=== PATIENT | male | born 1965 | race Caucasian/White ===

== ENCOUNTER → 2018-01-02 16:56 | Outpatient (CLI) | payer OTHER, MEDICAID, SELFPAY ==
--- NOTE | 2018-01-02 16:58 | DI.RAD.S_ITS ---
PROCEDURE: XR CHEST 2V INDICATIONS: Wheezing, Recent pneumonia TECHNIQUE: 2 views of the chest were acquired. COMPARISON: [facility], , CHEST 1 VIEW, 09/10/2015, 9:43. FINDINGS: Surgical changes and devices: None. Lungs and pleura: No pleural effusions or pneumothorax. No acute consolidation. Low lung volumes and mild scattered atelectasis Mediastinum: Mediastinal contours are normal. Heart size is normal. Bones and chest wall: No suspicious bony abnormalities. Soft tissues appear unremarkable. IMPRESSION: No acute consolidation. Dictated by: Shivam Hickman M.D. on 01/02/2018 at 17:16 Approved by: Shivam Hickman M.D. on 01/02/2018 at 17:17
== END ==
PROVIDERS: Family Provider Family Medicine; PCP Family Medicine; Visit Provider Family Medicine
DX: R06.2 Wheezing (principal); Z87.01 Personal history of pneumonia (recurrent)
CPT/HCPCS: 71046

== ENCOUNTER → 2018-04-10 14:06 | Outpatient (CLI) | payer OTHER, MEDICAID, SELFPAY ==
[2018-04-10 14:54] LABS: Add Manual Diff / Slide Review NO; Basophils Absolute Auto 100 /uL (0-100); Basophils Percent Auto 1.2 % (0-2); Eosinophils Absolute Auto 700 /uL (0-450); Eosinophils Percent Auto 13.8 % (2-4); Hematocrit 29.6 % (41-53); Hemoglobin 8.7 g/dL (13.5-17.5); Lymphocytes Absolute Auto 1100 /uL (1100-4500); Lymphocytes Percent Auto 20.6 % (25-40); Mean Corpuscular HGB Conc 29.4 % (30-36); Monocytes Absolute Auto 400 /uL (0-900); Monocytes Percent Auto 7.1 % (3-14); Neutrophils Absolute Auto 3100 /uL (1500-7000); Neutrophils Percent Auto 57.3 % (50-75); Platelet Count 171 X10^3/uL (150-400); Red Blood Cell Count 4.35 X10^6/uL (4.5-5.9); Red Cell Distribution Width 19.6 % (11.6-14.8); White Blood Cell Count 5.4 X10^3/uL (4.5-11.0)
[2018-04-10 15:14] LABS: Hemoglobin A1C% w Est Avg Glu 5.7 % (4.0-6.0)
[2018-04-10 15:57] LABS: Alanine Aminotransferase 27 IU/L (21-72); Albumin Globulin Ratio 1.4 (1.0-2.8); Alkaline Phosphatase 51 U/L (38-126); Aspartate Aminotransferase 43 IU/L (17-59); Bilirubin Total 0.2 mg/dL (0.2-1.3); Blood Urea Nitrogen 12 mg/dL (9-20); Calcium 9.1 mg/dL (8.4-10.2); Carbon Dioxide 29 mmol/L (22-32); Chloride 104 mmol/L (98-107); Cholesterol 206 mg/dL (140-199); Estimated Glomerular Filt Rate > 60.0 mL/min (>60); Globulin 2.8 g/dL (1.7-4.1); Glucose 111 mg/dL (70-100); HDL Cholesterol 38 mg/dL (40-60); HEMOLYSIS < 15 (0-50); Hypochromasia 2+; LDL Cholesterol Calculated 147 mg/dL (<100); Microcytosis 2+; Ovalocytes 1+; Potassium 3.5 mmol/L (3.4-5.1); Sodium 141 mmol/L (137-145); Total Protein 6.8 g/dL (6.3-8.2); Triglycerides 107 mg/dL (35-150)
[2018-04-12 15:35] LABS: Parathyroid Hormone Int 42 pg/mL (14-64)
== END ==
PROVIDERS: PCP Family Medicine; Visit Provider Family Medicine
DX: D64.9 Anemia, unspecified (principal); E11.9 Type 2 diabetes mellitus without complications; E66.9 Obesity, unspecified; G40.909 Epilepsy, unspecified, not intractable, without status epilepticus; I10 Essential (primary) hypertension; J81.1 Chronic pulmonary edema; R53.83 Other fatigue
CPT/HCPCS: 36415; 80053; 80061; 83036; 83970; 85025

== ENCOUNTER → 2018-05-22 12:38 | Outpatient (CLI) | payer OTHER, MEDICAID, SELFPAY ==
[2018-05-22 12:59] LABS: Hematocrit 33.6 % (41-53); Hemoglobin 9.5 g/dL (13.5-17.5); Mean Corpuscular HGB Conc 28.4 % (30-36); Mean Corpuscular Hemoglobin 19.8 PG (26-34); Mean Corpuscular Volume 69.6 fL (80-100); Platelet Count 225 X10^3/uL (150-400); Red Blood Cell Count 4.82 X10^6/uL (4.5-5.9); Red Cell Distribution Width 22.6 % (11.6-14.8); White Blood Cell Count 6.4 X10^3/uL (4.5-11.0)
[2018-05-22 13:02] LABS: Add Manual Diff / Slide Review YES
[2018-05-22 14:04] LABS: Neutrophils Absolute Manual 2944 /uL (3000-5900); Nucleated Red Blood Cells 1 #/Diff; Total Cells Counted 100
[2018-05-22 14:12] LABS: Anisocytosis 2+; Microcytosis 1+; Poikilocytosis 1+; Polychromasia 1+
== END ==
PROVIDERS: PCP Family Medicine; Visit Provider Family Medicine
DX: D64.9 Anemia, unspecified (principal)
CPT/HCPCS: 36415; 85025

== ENCOUNTER → 2018-06-20 14:07 | Outpatient (CLI) | payer OTHER, MEDICAID, SELFPAY ==
[2018-06-20 14:26] LABS: Add Manual Diff / Slide Review NO; Basophils Absolute Auto 100 /uL (0-100); Basophils Percent Auto 1.2 % (0-2); Eosinophils Absolute Auto 600 /uL (0-450); Eosinophils Percent Auto 10.9 % (2-4); Hematocrit 37.1 % (41-53); Hemoglobin 11.2 g/dL (13.5-17.5); Lymphocytes Absolute Auto 1100 /uL (1100-4500); Lymphocytes Percent Auto 19.9 % (25-40); Mean Corpuscular HGB Conc 30.2 % (30-36); Mean Corpuscular Hemoglobin 23.5 PG (26-34); Mean Corpuscular Volume 77.6 fL (80-100); Monocytes Absolute Auto 300 /uL (0-900); Monocytes Percent Auto 6.1 % (3-14); Neutrophils Absolute Auto 3300 /uL (1500-7000); Neutrophils Percent Auto 61.9 % (50-75); Platelet Count 182 X10^3/uL (150-400); Red Blood Cell Count 4.78 X10^6/uL (4.5-5.9); Red Cell Distribution Width 29.6 % (11.6-14.8); White Blood Cell Count 5.3 X10^3/uL (4.5-11.0)
[2018-06-20 14:39] LABS: Anisocytosis 2+; Ovalocytes 1+
[2018-06-20 14:42] LABS: Alanine Aminotransferase 22 IU/L (21-72); Albumin 3.9 g/dL (3.5-5.0); Albumin Globulin Ratio 1.5 (1.0-2.8); Alkaline Phosphatase 59 U/L (38-126); Aspartate Aminotransferase 18 IU/L (17-59); Bilirubin Total 0.2 mg/dL (0.2-1.3); Blood Urea Nitrogen 12 mg/dL (9-20); Calcium 9.3 mg/dL (8.4-10.2); Carbon Dioxide 28 mmol/L (22-32); Chloride 104 mmol/L (98-107); Estimated Glomerular Filt Rate > 60.0 mL/min (>60); Globulin 2.6 g/dL (1.7-4.1); Glucose 92 mg/dL (70-100); HEMOLYSIS < 15 (0-50); Potassium 3.6 mmol/L (3.4-5.1); Sodium 141 mmol/L (137-145); Total Protein 6.5 g/dL (6.3-8.2)
[2018-06-20 14:45] LABS: HEMOLYSIS < 15 (0-50); Iron 44 ug/dL (49-181)
[2018-06-20 14:47] LABS: Hemoglobin A1C% w Est Avg Glu 4.8 % (4.0-6.0)
[2018-06-20 14:58] LABS: Percent Iron Saturation 14 % (20-50); Total Iron Binding Capacity 318 ug/dL (261-462); Transferrin 262 mg/dL (206-381)
== END ==
PROVIDERS: PCP Family Medicine; Visit Provider Family Medicine
DX: D64.9 Anemia, unspecified (principal); E11.9 Type 2 diabetes mellitus without complications; E66.9 Obesity, unspecified; G40.909 Epilepsy, unspecified, not intractable, without status epilepticus
CPT/HCPCS: 36415; 80053; 83036; 83540; 83550; 85025

== ENCOUNTER → 2018-09-25 14:14 | Outpatient (CLI) | payer OTHER, MEDICAID, SELFPAY ==
[2018-09-25 14:47] LABS: Hematocrit 38.9 % (41-53); Hemoglobin 12.7 g/dL (13.5-17.5); Mean Corpuscular HGB Conc 32.6 % (30-36); Mean Corpuscular Hemoglobin 28.4 PG (26-34); Mean Corpuscular Volume 87.2 fL (80-100); Platelet Count 206 X10^3/uL (150-400); Red Blood Cell Count 4.46 X10^6/uL (4.5-5.9); Red Cell Distribution Width 17.8 % (11.6-14.8); White Blood Cell Count 5.2 X10^3/uL (4.5-11.0)
[2018-09-25 15:05] LABS: Alanine Aminotransferase 19 IU/L (21-72); Albumin 4.4 g/dL (3.5-5.0); Albumin Globulin Ratio 1.7 (1.0-2.8); Alkaline Phosphatase 56 U/L (38-126); Aspartate Aminotransferase 19 IU/L (17-59); BUN Creatinine Ratio 27.5 (6-22); Bilirubin Total 0.5 mg/dL (0.2-1.3); Blood Urea Nitrogen 11 mg/dL (9-20); Carbon Dioxide 21 mmol/L (22-32); Chloride 108 mmol/L (98-107); Cholesterol 136 mg/dL (140-199); Estimated Glomerular Filt Rate > 60.0 mL/min (>60); Globulin 2.6 g/dL (1.7-4.1); Glucose 129 mg/dL (70-100); HDL Cholesterol 43 mg/dL (40-60); HEMOLYSIS < 15 (0-50); LDL Cholesterol Calculated 79 mg/dL (<100); Potassium 4.1 mmol/L (3.4-5.1); Sodium 140 mmol/L (137-145); Triglycerides 69 mg/dL (35-150)
[2018-09-25 15:28] LABS: Neutrophils Absolute Manual 3900 /uL (3000-5900); Total Cells Counted 100
[2018-09-25 15:30] LABS: Anisocytosis 1+
[2018-09-25 16:11] LABS: Hemoglobin A1C% w Est Avg Glu 4.8 % (4.0-6.0)
== END ==
PROVIDERS: PCP Family Medicine; Visit Provider Family Medicine
DX: E11.9 Type 2 diabetes mellitus without complications (principal); Z51.81 Encounter for therapeutic drug level monitoring; Z86.2 Personal history of diseases of the blood and blood-forming organs and certain disorders involving the immune mechanism
CPT/HCPCS: 36415; 80053; 80061; 83036; 85025

== ENCOUNTER → 2019-11-01 09:34 | Outpatient (CLI) | payer OTHER, MEDICAID, SELFPAY ==
[2019-11-01 10:20] LABS: Add Manual Diff / Slide Review NO; Basophils Absolute Auto 0 /uL (0-100); Basophils Percent Auto 0.9 % (0-2); Eosinophils Absolute Auto 400 /uL (0-450); Eosinophils Percent Auto 7.4 % (2-4); Hematocrit 31.5 % (41-53); Hemoglobin 9.8 g/dL (13.5-17.5); Lymphocytes Absolute Auto 1400 /uL (1100-4500); Lymphocytes Percent Auto 26.8 % (25-40); Mean Corpuscular Hemoglobin 24.7 PG (26-34); Mean Corpuscular Volume 79.6 fL (80-100); Monocytes Absolute Auto 400 /uL (0-900); Monocytes Percent Auto 7.7 % (3-14); Neutrophils Absolute Auto 3000 /uL (1500-7000); Neutrophils Percent Auto 57.2 % (50-75); Platelet Count 197 X10^3/uL (150-400); Red Blood Cell Count 3.96 X10^6/uL (4.5-5.9); Red Cell Distribution Width 16.6 % (11.6-14.8); White Blood Cell Count 5.3 X10^3/uL (4.5-11.0)
[2019-11-01 10:32] LABS: Alanine Aminotransferase 17 IU/L (<50); Albumin 3.6 g/dL (3.5-5.0); Albumin Globulin Ratio 1.3 (1.0-2.8); Alkaline Phosphatase 59 U/L (38-126); Aspartate Aminotransferase 18 IU/L (17-59); BUN Creatinine Ratio 23.3 (6-22); Bilirubin Total 0.2 mg/dL (0.2-1.3); Blood Urea Nitrogen 17 mg/dL (9-20); Calcium 8.8 mg/dL (8.4-10.2); Carbon Dioxide 23 mmol/L (22-32); Chloride 109 mmol/L (98-107); Cholesterol 179 mg/dL (140-199); Estimated Glomerular Filt Rate > 60.0 mL/min (>60); Globulin 2.7 g/dL (1.7-4.1); Glucose 132 mg/dL (70-100); HDL Cholesterol 33 mg/dL (40-60); HEMOLYSIS < 15 (0-50); LDL Cholesterol Calculated 110 mg/dL (<100); Potassium 3.7 mmol/L (3.4-5.1); Sodium 140 mmol/L (137-145); Total Protein 6.3 g/dL (6.3-8.2); Triglycerides 181 mg/dL (35-150)
[2019-11-01 10:35] LABS: Hemoglobin A1C% w Est Avg Glu 6.1 % (4.0-6.0)
== END ==
PROVIDERS: PCP Family Medicine; Referring Provider Family Medicine; Visit Provider Family Medicine
DX: E11.9 Type 2 diabetes mellitus without complications (principal)
CPT/HCPCS: 36415; 80053; 80061; 83036; 85025

== ENCOUNTER → 2021-09-02 15:21 | Outpatient (CLI) | payer OTHER, MEDICAID, SELFPAY ==
[2021-09-02 16:13] LABS: Add Manual Diff / Slide Review NO; Basophils Absolute Auto 0 /uL (0-100); Basophils Percent Auto 1.3 % (0-2); Eosinophils Absolute Auto 200 /uL (0-450); Eosinophils Percent Auto 4.8 % (2-4); Lymphocytes Absolute Auto 800 /uL (1100-4500); Lymphocytes Percent Auto 21.5 % (25-40); Mean Corpuscular HGB Conc 28.1 % (30-36); Mean Corpuscular Hemoglobin 17.6 PG (26-34); Mean Corpuscular Volume 62.7 fL (80-100); Monocytes Absolute Auto 300 /uL (0-900); Monocytes Percent Auto 8.5 % (3-14); Neutrophils Absolute Auto 2400 /uL (1500-7000); Neutrophils Percent Auto 63.9 % (50-75); Platelet Count 143 X10^3/uL (150-400); Red Blood Cell Count 3.19 X10^6/uL (4.5-5.9); White Blood Cell Count 3.7 X10^3/uL (4.5-11.0)
[2021-09-02 16:17] LABS: Hemoglobin 5.6 g/dL (13.5-17.5)
[2021-09-02 16:20] LABS: Alanine Aminotransferase 8 IU/L (<50); Albumin Globulin Ratio 1.5 (1.0-2.8); Alkaline Phosphatase 49 U/L (38-126); Aspartate Aminotransferase 21 IU/L (17-59); BUN Creatinine Ratio 14.3 (6-22); Bilirubin Total 0.2 mg/dL (0.2-1.3); Blood Urea Nitrogen 11 mg/dL (9-20); Calcium 8.8 mg/dL (8.4-10.2); Carbon Dioxide 22 mmol/L (22-32); Chloride 111 mmol/L (98-107); Cholesterol 111 mg/dL (140-199); Estimated Glomerular Filt Rate > 60 mL/min (>60); Globulin 2.6 g/dL (1.7-4.1); Glucose 120 mg/dL (70-100); HDL Cholesterol 24 mg/dL (40-60); HEMOLYSIS < 15 (0-50); LDL Cholesterol Calculated 70 mg/dL (<100); Potassium 3.8 mmol/L (3.4-5.1); Sodium 141 mmol/L (137-145); Total Protein 6.6 g/dL (6.3-8.2); Triglycerides 86 mg/dL (35-150)
[2021-09-02 17:09] LABS: Vitamin B12 532 pg/mL (239-931)
[2021-09-02 17:42] LABS: Hypochromasia 3+; Microcytosis 3+
== END ==
PROVIDERS: PCP Family Medicine; Referring Provider Family Medicine; Visit Provider Family Medicine
DX: E11.9 Type 2 diabetes mellitus without complications (principal); E78.5 Hyperlipidemia, unspecified; I10 Essential (primary) hypertension
CPT/HCPCS: 36415; 80053; 80061; 82607; 85025

== ENCOUNTER → 2022-02-23 13:40 | Outpatient (CLI) | payer OTHER, MEDICAID, SELFPAY | PROVIDERS: PCP Family Medicine; Visit Provider Family Medicine | DX: R30.0 Dysuria (principal); R10.9 Unspecified abdominal pain | CPT/HCPCS: 81002 ==

== ENCOUNTER 2022-04-29 13:22 | Day surgery (SDC) | payer OTHER, MEDICAID, SELFPAY ==
--- NOTE | 2022-04-29 | PATH_ITS ---
[facility] Accession Number: [id number] No. of containers..01 Tissue . 01 Material submitted: . colon - DESCENDING COLON POLYP . 01 Diagnosis: Descending Colon, Polyp, Biopsy: Tubular adenoma. Additional levels were examined. MRV 05/06/2022 1406 Local . 01 Electronically signed: . Aicha Shirley MD, Pathologist NPI- [id number] . 01 Gross description: . DESCENDING COLON POLYP: Received in formalin is 1 fragment(s) of woodard, soft tissue measuring 0.4 x 0.2 x 0.1 cm submitted entirely in 1 cassette(s) /CPE 05/01/2022 0814 Local . 01 Pathologist provided ICD-10: D12.4 . 01 CPT . 820435 Specimen Comment: A courtesy copy of this report has been sent to [phone] Performed at: 01 [facility] [address] [place] [address], [place], [place] [id number] MD Everette Card MD Phone: [phone]
[2022-04-29] MEDS: LACTATED RINGERS 1,000 ML 120 ML IV (13:32)
[2022-04-29 13:39] VITALS: BP 127/77; PULSE 55; RESP 16; TEMP 36.1; O2SAT 100; BMI 36.8
--- NOTE | 2022-04-29 14:20 | PM.HP.1 ---
History of Present Illness History of Present Illness Date Patient Seen: 04/29/22 Time Patient Seen: 14:20 Chief complaint: SDC Narrative: Lindsey is here for his colonoscopy rubber-band ligation. Please see the office note from March for details Patient History Medical History (Updated 04/15/22 @ 11:11 by Keith Oliva DO) Anemia (~2013) BRBPR (bright red blood per rectum) Depression (Unknown) Developmental delay, mild (Unknown) Diabetes (Unknown) Excessive weight gain Flank pain GERD (gastroesophageal reflux disease) (Unknown) History of nephrolithiasis Hyperlipemia (Unknown) Hypertension (Unknown) Internal bleeding hemorrhoids Iron deficiency anemia due to chronic blood loss Migraines (Unknown) Nocturia Obstructive sleep apnea (Unknown) Peripheral neuropathy (Unknown) Rectal bleeding Right ureteral calculus Seizures (Unknown) Skin sensation disturbance Surgical History (Updated 09/15/21 @ 15:31 by Jeremy More MD) History of carpal tunnel release (~2003) History of esophagogastroduodenoscopy (EGD) (08/2015) Hx of colonoscopy (09/2015) Family & Social History Family History Brother DM2 (diabetes mellitus, type 2) Mother CA (myocardial infarction) Social History: household members family Tobacco & Substance use: Smoking Status Never smoker alcohol intake never Substance Use Type does not use Meds Home Medications and Allergies Home Medications Medication Instructions Recorded Confirmed Type fluticasone propionate 50 1 spray intranasal DAILY ##16 10/20/16 04/29/22 Rx mcg/actuation nasal spray,suspension Lactulose See Rx Instructions .Route .COMPLEX 09/21/17 04/29/22 History albuterol sulfate 90 mcg/actuation 2 puff inhalation Q6H PRN 01/02/18 04/29/22 Rx aerosol inhaler shortness of breath or wheezing #18 grams acetaminophen 325 mg tablet (Pain See Rx Instructions .Route 07/02/19 04/29/22 Rx Reliever (acetaminophen)) .COMPLEX #60 tabs ascorbic acid (vitamin C) 1,000 mg 1 g PO DAILY #90 tabs 10/15/20 04/29/22 Rx tablet blood sugar test strips #100 ea 10/15/20 04/15/22 Rx primidone 50 mg tablet See Rx Instructions .Route 09/15/21 04/29/22 Rx .COMPLEX #270 tabs topiramate 100 mg tablet See Rx Instructions .Route 09/15/21 04/29/22 Rx .COMPLEX #90 tabs simvastatin 40 mg tablet See Rx Instructions .Route 10/13/21 04/29/22 Rx .COMPLEX #90 tabs pantoprazole 40 mg tablet,delayed 40 mg PO DAILY #90 tabs 01/27/22 04/29/22 Rx release gtxvyydpcb-bhsxzfxwarqfa-eykrocug See Rx Instructions .Route 01/28/22 04/29/22 Rx 50 mg-325 mg-40 mg tablet .COMPLEX #60 tabs fluoxetine 20 mg capsule See Rx Instructions .Route 02/22/22 04/29/22 Rx .COMPLEX #90 caps metformin 500 mg tablet See Rx Instructions .Route 02/22/22 04/29/22 Rx .COMPLEX #180 tabs psyllium seed (sugar) oral powder 2 tsp PO ONCE #1,254 grams 02/23/22 04/29/22 Rx (Metamucil (sugar) oral powder) hydrocodone 5 mg-acetaminophen 325 1 tab PO Q4-6H PRN pain #180 tabs 03/11/22 04/29/22 Rx mg tablet tamsulosin 0.4 mg capsule 0.4 mg PO DAILY #14 caps 04/15/22 04/29/22 Rx propranolol 40 mg tablet See Rx Instructions .Route 04/21/22 04/29/22 Rx .COMPLEX #90 tabs Allergies Allergy/AdvReac Type Severity Reaction Status Date / Time ketorolac [KETOROLAC] Allergy Severe Hallucinati Verified 04/15/22 10:54 ons phenytoin [PHENYTOIN] Allergy Severe Anaphylaxis Verified 04/15/22 10:54 codeine [CODEINE] Allergy Mild Nausea Verified 04/15/22 10:54 Penicillins [PENICILLINS] Allergy Unknown Patient Verified 04/15/22 10:54 can't remember Exam Vital Signs (past 8 hours): - 04/29/22 13:39 Temperature 97 F L Pulse Rate 55 L Respiratory Rate 16 Blood Pressure 127/77 Pulse Oximetry 100 Oxygen Delivery Method Room Air Oxygen Delivery Method Room Air Const General: No acute distress Assessment & Plan Assessment and plan (1) Internal bleeding hemorrhoids: Status: Acute Plan We will proceed with colonoscopy and rubber-band ligation Time Spent With Patient Critical Care time: I spent a total of [] minutes of critical care time on this patient's care today; this time is exclusive of procedural time.
--- NOTE | 2022-04-29 14:55 | P.OP.COLON_ITS ---
Operative Date/Time/Diagnoses Date of procedure: 04/29/22 Time of procedure: 14:55 Pre-op diagnosis: Anemia Post-op diagnosis: same Procedure & Clinicians Study performed: Colonoscopy and rubber-band ligation of internal hemorrhoids Same procedure as scheduled: Yes Surgeon: David Edwards Procedure Notes Procedure in detail: Surgeon: David Edwards MD Anesthesia: Sharron Tabor PRINTER TECHNICIAN Procedure: The patient was brought to the endoscopy suite, placed in left lateral decubitus position. The patient was connected to monitoring devices. A time-out was performed. Sedation was administered. Once the patient was adequately sedated, a digital rectal exam was performed and was normal. The scope was then inserted and advanced to the cecum where the appendiceal orifice was identified and photographed. The scope was then slowly withdrawn over greater than 6 minutes. The mucosa was thoroughly inspected. There was a 5 mm polyp in the descending colon removed with the Jumbo forceps. The scope was retroflexed in the rectum. There were internal hemorrhoids. The scope was straightened and removed. Rubber-band ligation was performed to the hemorrhoidal columns in the left lateral, right anterior and right posterior location The patient was awakened and brought to recovery. Scope withdrawal time: 10 minutes Sedation time: 17 minutes EBL: 2 mL Findings: 5 mm polyp in the descending colon and internal hemorrhoids Post-procedure Disposition: PACU
[2022-04-29 14:56] VITALS: BP 101/61; PULSE 68; RESP 24; TEMP 36.4; O2SAT 98
[2022-04-29 15:02] VITALS: BP 105/69; PULSE 62; RESP 16; O2SAT 99
[2022-04-29 15:10] VITALS: BP 105/69; PULSE 62; RESP 22; O2SAT 99
== END 2022-04-29 15:19 | disposition home or self-care (01) ==
PROVIDERS: PCP Family Medicine; Referring Provider Surgery; Visit Provider Surgery
PROC: 0DJD8ZZ Inspection of Lower Intestinal Tract, Via Natural or Artificial Opening Endoscopic (ICD-10-PCS; CPT 45378; principal; 2022-04-29 14:30)
DX: D64.9 Anemia, unspecified (principal); K64.8 Other hemorrhoids; D12.4 Benign neoplasm of descending colon
CPT/HCPCS: 45380; 46221; J2704

== ENCOUNTER → 2022-06-24 10:06 | Oncology outpatient (ONC) | payer OTHER, MEDICAID, SELFPAY ==
[2021-09-15 15:10] VITALS: BP 121/63; PULSE 65; RESP 18; TEMP 36.3; O2SAT 99
--- NOTE | 2021-09-15 15:28 | ONC.CONS ---
History of Present Illness - Data of Consult Primary Care Provider: Augie Oliva, DO - Consult Narrative Reason for consult: Anemia Narrative: Lindsey Arrieta is a 56 year old male with history of anemia and bright red blood per rectum recently found to have hematocrit of 20% and is now being referred for further evaluation. He also has a history of type 2 diabetes developmental delay and depression. He states he has noted bright red blood per rectum over the last year however does not recall recent colonoscopy. Was placed on oral iron tablets and has been taking these for the last 4-6 weeks. He also describes fatigue and [id number] shortness of breath with exertion. Prior records indicate he had a colonoscopy in September of 2015 and EGD in August of 2015. He denies any weight loss loss of appetite headaches vision changes cough shortness of breath. CC: Jeremy More MD Home Medications and Allergies Home Medications Medication Instructions Recorded Confirmed Type fluticasone propionate 50 1 spray intranasal DAILY ##16 10/20/16 09/02/21 Rx mcg/actuation nasal spray,suspension Lactulose See Rx Instructions .Route .COMPLEX 09/21/17 09/02/21 History albuterol sulfate 90 mcg/actuation 2 puff inhalation Q6H PRN 01/02/18 09/02/21 Rx aerosol inhaler shortness of breath or wheezing #18 grams acetaminophen 325 mg tablet (Pain See Rx Instructions .Route 07/02/19 09/02/21 Rx Reliever (acetaminophen)) .COMPLEX #60 tabs ascorbic acid (vitamin C) 1,000 mg 1 g PO DAILY #90 tabs 10/15/20 09/02/21 Rx tablet blood sugar test strips #100 ea 10/15/20 09/02/21 Rx ferrous sulfate 325 mg (65 mg 325 mg PO DAILY #90 tabs 10/15/20 09/02/21 Rx iron) tablet fluoxetine 20 mg capsule See Rx Instructions .Route 05/25/21 09/02/21 Rx .COMPLEX #30 caps propranolol 40 mg tablet See Rx Instructions .Route 05/25/21 09/02/21 Rx .COMPLEX #90 tabs simvastatin 40 mg tablet See Rx Instructions .Route 06/22/21 09/02/21 Rx .COMPLEX #90 tabs pantoprazole 40 mg tablet,delayed 40 mg PO DAILY #90 tabs 07/27/21 09/02/21 Rx release [id number]-hzhvcmaj See Rx Instructions .Route 08/05/21 09/02/21 Rx 50 mg-325 mg-40 mg tablet .COMPLEX #60 tabs metformin 500 mg tablet See Rx Instructions .Route 08/18/21 09/02/21 Rx .COMPLEX #180 tabs primidone 50 mg tablet See Rx Instructions .Route 09/15/21 Rx .COMPLEX #270 tabs topiramate 100 mg tablet See Rx Instructions .Route 09/15/21 Rx .COMPLEX #90 tabs Allergies Allergy/AdvReac Type Severity Reaction Status Date / Time ketorolac [KETOROLAC] Allergy Severe Hallucinati Verified 09/02/21 15:09 ons phenytoin [PHENYTOIN] Allergy Severe Anaphylaxis Verified 09/02/21 15:09 codeine [CODEINE] Allergy Mild Nausea Verified 09/02/21 15:09 Penicillins [PENICILLINS] Allergy Unknown Patient Verified 09/02/21 15:09 can't remember Medical History - Medical, Surgical, Family History Medical History: Medical History (Last Updated 09/02/21 @ 15:24 by Augie Oliva DO) Anemia Onset Date: ~2013 BRBPR (bright red blood per rectum) Depression Onset Date: Unknown Developmental delay, mild Onset Date: Unknown Diabetes Onset Date: Unknown Excessive weight gain GERD (gastroesophageal reflux disease) Onset Date: Unknown Hyperlipemia Onset Date: Unknown Hypertension Onset Date: Unknown Iron deficiency anemia due to chronic blood loss Migraines Onset Date: Unknown Nocturia Obstructive sleep apnea Onset Date: Unknown Peripheral neuropathy Onset Date: Unknown Rectal bleeding Seizures Onset Date: Unknown Skin sensation disturbance Surgical History: Surgical History (Last Reviewed 03/25/20 @ 15:33 by Augie Oliva DO) History of carpal tunnel release Onset Date: ~2003 History of esophagogastroduodenoscopy (EGD) Onset Date: 08/2015 Hx of colonoscopy Onset Date: 09/2015 Family History: Family History (Last Reviewed 08/05/17 @ 17:07 by Magdalene Edmondson DO) Brother DM2 (diabetes mellitus, type 2) Mother CT (myocardial infarction) - Social History Smoking Status: Never smoker Review of Systems - Patient Self-Reported Symptoms SR Constitution: Fatigue/Malaise SR respiratory issues: Shortness of breath SR Cardiovascular issues: Chest pain, discomfort, tightness, Shortness of breath with activity or lying flat SR Gastrointestinal issues: Nausea, Blood in stool SR Neuro issues: Headache Constitutional: other (negative for unexpected weight change), no fever(s) Ears, nose, mouth, throat: no sore throat, no lump, no mass, no mouth sores Cardiovascular: no chest pain, no edema Respiratory: no shortness of breath, no cough Gastrointestinal: other (negative for blood in stool), no abdominal pain, no diarrhea Genitourinary: no dysuria, no hematuria Musculoskeletal: no abnormal gait, no back pain, no myalgias Integumentary: no rash, no itching Neurological: no abnormal gait, no dizziness, no headache(s) Hematologic/Lymphatic: no adenopathy Psychiatric: other (negative for decreased concentration), no anxiety Exam Vital signs: Vital Signs Temp Pulse Resp BP Pulse Ox 09/15/21 15:10 97.3 F L 65 18 121/63 99 Intake and Output 09/14/21 09/15/21 09/15/21 23:59 07:59 15:59 Other: Weight 110 kg Patient Weight 09/15/21 23:59 Weight 110 kg - Constitutional positive no acute distress, negative diaphoretic - Routine HEENT Exam Head: Present: normocephalic Eye: Present: PERRL (Conjunctivae normal) ENT: Present: mucous membranes moist - Routine Respiratory Exam Present: Clear to auscultation bilaterally. Absent: rales, respiratory distress, wheezes - Routine Cardiovascular Exam Present: RRR. Absent: murmur, irregular rhythm - Routine Abdominal Exam Present: soft. Absent: tenderness, distended, guarding - Routine Extremities Exam Present: full ROM. Absent: edema, tenderness (No Swelling) - Routine Skin Exam Present: dry, warm. Absent: lesions (No Bruising), jaundice - Routine Neurological Exam Present: alert, oriented X3. Absent: sensory deficit, motor deficit - Routine Psychiatric Exam Present: normal affect, normal thought process, cooperative. Absent: anxious, agitated Results - Imaging Additional studies: Procedures Excision of Esophagus, Via Natural or Artificial Opening Endoscopic, Diagnostic (09/11/15) Excision of Stomach, Via Natural or Artificial Opening Endoscopic, Diagnostic (09/11/15) Inspection of Lower Intestinal Tract, Via Natural or Artificial Opening Endoscopic (09/11/15) Transfusion of Nonautologous Frozen Plasma into Peripheral Vein, Percutaneous Approach (09/11/15) Transfusion of Nonautologous Red Blood Cells into Peripheral Vein, Percutaneous Approach (09/11/15) Assessment and Plan (1) Iron deficiency anemia due to chronic blood loss Status: Acute This is a very pleasant 56-year-old gentleman referred for evaluation of microcytic anemia with recent hematocrit of 20%. He does have a history of bright red blood per rectum and previous colonoscopies in 2016. He is on oral iron but however has not responded well to these. Given his rather low hematocrit I recommend starting iron sulfate intravenously weekly x5 doses to help improve his hematocrit. I will plan on starting him tomorrow given his severe anemia. I will also refer him to Gastroenterology for possible repeat colonoscopy given the bright red blood per rectum that he describes recently. The patient is agreeable to this plan will return to clinic tomorrow for 1st 1st iron infusion and will arrange for referral to Gastroenterology in the coming weeks.
--- NOTE | 2021-09-15 15:56 | PC.NURSE ---
THIS NURSE WAS INFORMED BY RAIZA THAT PATIENT WILL NOT BE ABLE TO GET IRON TOMORROW BOTH BECAUSE IT STILL NEEDS PREAUTH AND PATIENT CANNOT GET A RIDE UNTIL NEXT WEEK. DUE TO LOW H/H THIS NURSE CHECKED WITH DR CARSON WHETHER PATIENT HAD BEEN INSTRUCTED TO GO TO THE ER IF HIS SYMPTOMS OF SOB ARE WORSENING. DR CARSON RESPONDED THAT HE DID GIVE THIS INSTRUCTION TO THE PATIENT.
[2021-09-15 16:18] LABS: Add Manual Diff / Slide Review NO; Basophils Absolute Auto 100 /uL (0-100); Basophils Percent Auto 1.4 % (0-2); Eosinophils Absolute Auto 200 /uL (0-450); Eosinophils Percent Auto 4.2 % (2-4); Lymphocytes Absolute Auto 700 /uL (1100-4500); Lymphocytes Percent Auto 14.9 % (25-40); Mean Corpuscular Hemoglobin 17.6 PG (26-34); Mean Corpuscular Volume 64.9 fL (80-100); Monocytes Absolute Auto 600 /uL (0-900); Monocytes Percent Auto 12.6 % (3-14); Neutrophils Absolute Auto 3100 /uL (1500-7000); Neutrophils Percent Auto 66.9 % (50-75); Platelet Count 310 X10^3/uL (150-400); Red Blood Cell Count 3.16 X10^6/uL (4.5-5.9); Red Cell Distribution Width 22.7 % (11.6-14.8); White Blood Cell Count 4.6 X10^3/uL (4.5-11.0)
[2021-09-15 16:20] LABS: Hematocrit 20.5 % (41-53); Hemoglobin 5.5 g/dL (13.5-17.5)
[2021-09-15 16:32] LABS: Alanine Aminotransferase 14 IU/L (<50); Albumin 4.1 g/dL (3.5-5.0); Albumin Globulin Ratio 1.5 (1.0-2.8); Alkaline Phosphatase 53 U/L (38-126); Aspartate Aminotransferase 25 IU/L (17-59); BUN Creatinine Ratio 11.5 (6-22); Bilirubin Total 0.3 mg/dL (0.2-1.3); Blood Urea Nitrogen 7 mg/dL (9-20); Calcium 8.9 mg/dL (8.4-10.2); Carbon Dioxide 25 mmol/L (22-32); Chloride 110 mmol/L (98-107); Estimated Glomerular Filt Rate > 60 mL/min (>60); Globulin 2.7 g/dL (1.7-4.1); Glucose 133 mg/dL (70-100); HEMOLYSIS < 15 (0-50); Potassium 3.6 mmol/L (3.4-5.1); Sodium 144 mmol/L (137-145); Total Protein 6.8 g/dL (6.3-8.2)
[2021-09-15 16:35] LABS: HEMOLYSIS < 15 (0-50); Iron 27 ug/dL (49-181)
[2021-09-15 16:45] LABS: Hypochromasia 3+; Microcytosis 2+
[2021-09-15 16:46] LABS: Percent Iron Saturation 6 % (20-50); Total Iron Binding Capacity 470 ug/dL (261-462); Transferrin 353 mg/dL (206-381)
[2021-09-15 17:07] LABS: Ferritin 4 ng/mL (18-464)
[2021-09-23 10:59] VITALS: BP 98/63; PULSE 63; RESP 16; TEMP 36.3; O2SAT 100
--- NOTE | 2021-09-23 11:01 | ONC.SCHED ---
GI Referral: Jada sent referral information on 09/15/21 regarding urgent referral to [facility] for [facility] bleeding and anemia. [facility] will contact patient for scheduling.
[2021-09-23 11:08] LABS: Hematocrit 19.1 % (41-53); Hemoglobin 5.3 g/dL (13.5-17.5)
[2021-09-23] MEDS: IRON SUCROSE 300 MG in SODIUM CHLORIDE 0.9% 250 ML 176.667 MG IV (11:42)
--- NOTE | 2021-09-23 12:28 | PC.NURSE ---
Addendum entered by Luz James R.N. 09/23/21 15:17: Unable to find GI provider closer to pt's residence that is able to get the pt in prior to November. This RN provided update to DAVE Neal at [facility] and Val placed on their schedule for next Tue at 1130. This RN provided Val with pt's brother, Conrad's phone number. Val agrees to call Conrad with appt info. This RN let Conrad know he should be expecting a call from [facility], Conrad verbalized understanding. Original Note: pt update: Pt reports SOB with activity, dizziness and fatigue. Pt continues to reports blood in stool, MD aware. Critical h/h results given to Dr. More, one unit blood ordered. Iron infusing at this time, no issues noted. This RN inquired with pt about GI referral placed by Dr. More last week during appt. Per pt he is unaware of referral or appt. Clinical ship ceiler, Jada, informed this consumer loan underwriter that pt has a phone visit appt scheduled for this afternoon at 2:20 with [facility]. Pt informed this RN that he does not own a phone, and was unaware of appt. This RN spoke with DAVE Neal at [facility] and updated her on pt's phone status and updated blood orders, Val verbalized understanding. This RN also explained to Val that pt's brother and mode of transportation is requesting new referral to be placed for a GI in the [facility] area, closer to where the pt and family live. If unable to find a GI closer to their residence, pt's brother Conrad agreeable to take pt to [facility]. Plan to provide Val with update if unable to find a GI in pt's area, Val agreeable.
[2021-09-23 13:43] VITALS: BP 101/41; PULSE 62; RESP 18; TEMP 36.7
[2021-09-23 13:58] VITALS: BP 107/56; PULSE 64; RESP 16; TEMP 36.4
[2021-09-23 16:22] VITALS: BP 101/52; PULSE 64; RESP 16; TEMP 36.6
[2021-09-30] MEDS: IRON SUCROSE 300 MG in SODIUM CHLORIDE 0.9% 250 ML 176.667 MG IV (14:12)
[2021-09-30 14:17] VITALS: BP 97/52; PULSE 57; RESP 16; TEMP 36.6; O2SAT 98
[2021-10-07 10:40] VITALS: BP 101/62; PULSE 55; RESP 16; TEMP 36.4; O2SAT 100
[2021-10-07] MEDS: IRON SUCROSE 300 MG in SODIUM CHLORIDE 0.9% 250 ML 176.667 MG IV (10:43)
[2021-10-21 11:07] VITALS: BP 99/39; PULSE 65; RESP 18; O2SAT 98
[2021-10-21] MEDS: IRON SUCROSE 300 MG in SODIUM CHLORIDE 0.9% 250 ML 176.667 MG IV (11:11)
[2021-10-21 14:04] VITALS: BP 102/62
--- NOTE | 2021-10-21 16:09 | PC.NURSE ---
CBC AT [facility] ARRANGED FOR PATIENT HE STATES HE HAS INCREASING SOB ON EXERTION THE LAST FEW DAYS, HAD SOME RECTAL BLEEDING ON THE WEEKEND FOR WHICH HE HAD TO CHANGE HIS UNDERWEAR (POST COLONOSCOPY ON TUESDAY) AND BLOOD PRESSURES WERE QUITE LOW TODAY WHILE PATIENT HERE FOR IRON INFUSION (ALTHOUGH WITHIN HIS RANGE OVER THE LAST MONTH AND HE IS NOT EXPERIENCING DIZZINESS). THIS NURSE INFORMED NURSE QUINTANILLA AT PCP DR CASTRO OF THE LOW BLOOD PRESSURES AND FAXED LAB ORDER TO [facility] IN [place].
--- NOTE | 2021-10-21 16:31 | PC.NURSE ---
MESSAGE LEFT FOR FAMILY CONTACT RAMILA TO CALL BACK AND SPEAK WITH TRIAGE ABOUT [facility] TO GET CBC DRAWN AT [facility], [facility] ON SUNDAY 10/22. THIS NURSE WROTE ON FAXED ORDER TO [facility] THE REQUEST FOR A CALL IN OF THE RESULTS WELL FAX TO OUR NUMBERS.
--- NOTE | 2021-10-22 15:43 | PC.NURSE ---
THIS NURSE REACHED PATIENT TODAY AND TOLD HIM TO GET LABS DONE TODAY OR TOMORROW ON THE ORDER WHICH HAS BEEN SENT TO [facility]. PATIENT VOICED AGREEMENT.
[2021-10-28 10:17] VITALS: BP 91/52; PULSE 60; RESP 16; TEMP 36.3; O2SAT 98
[2021-10-28] MEDS: IRON SUCROSE 300 MG in SODIUM CHLORIDE 0.9% 250 ML 176.667 MG IV (11:13)
[2021-11-24 16:17] VITALS: BP 111/69; PULSE 63; RESP 18; TEMP 36.3; O2SAT 97
--- NOTE | 2021-11-24 16:19 | ONC.PN ---
PN -Subjective - Date of Visit Date of visit: 11/24/21 Chief Complaint: f/u iron def anemia Interval history: Lindsey returns today after undergoing iron infusions and EGD + colonoscopy. Overall he feels better. - Patient Self-Reported Symptoms SR Constitution: Fatigue/Malaise SR respiratory issues: Shortness of breath SR Cardiovascular issues: Shortness of breath with activity or lying flat SR Gastrointestinal issues: Blood in stool SR Musculoskeletal issues: Muscle weakness SR Neuro issues: Headache Home Medications and Allergies Home Medications Medication Instructions Recorded Confirmed Type fluticasone propionate 50 1 spray intranasal DAILY ##16 10/20/16 09/02/21 Rx mcg/actuation nasal spray,suspension Lactulose See Rx Instructions .Route .COMPLEX 09/21/17 09/02/21 History albuterol sulfate 90 mcg/actuation 2 puff inhalation Q6H PRN 01/02/18 09/02/21 Rx aerosol inhaler shortness of breath or wheezing #18 grams acetaminophen 325 mg tablet (Pain See Rx Instructions .Route 07/02/19 09/02/21 Rx Reliever (acetaminophen)) .COMPLEX #60 tabs ascorbic acid (vitamin C) 1,000 mg 1 g PO DAILY #90 tabs 10/15/20 09/02/21 Rx tablet blood sugar test strips #100 ea 10/15/20 09/02/21 Rx ferrous sulfate 325 mg (65 mg 325 mg PO DAILY #90 tabs 10/15/20 09/02/21 Rx iron) tablet fluoxetine 20 mg capsule See Rx Instructions .Route 05/25/21 09/02/21 Rx .COMPLEX #30 caps pantoprazole 40 mg tablet,delayed 40 mg PO DAILY #90 tabs 07/27/21 09/02/21 Rx release [id number]-[id number] See Rx Instructions .Route 08/05/21 09/02/21 Rx 50 mg-325 mg-40 mg tablet .COMPLEX #60 tabs metformin 500 mg tablet See Rx Instructions .Route 08/18/21 09/02/21 Rx .COMPLEX #180 tabs primidone 50 mg tablet See Rx Instructions .Route 09/15/21 Rx .COMPLEX #270 tabs topiramate 100 mg tablet See Rx Instructions .Route 09/15/21 Rx .COMPLEX #90 tabs simvastatin 40 mg tablet See Rx Instructions .Route 10/13/21 Rx .COMPLEX #90 tabs propranolol 40 mg tablet See Rx Instructions .Route 11/11/21 Rx .COMPLEX #90 tabs Allergies Allergy/AdvReac Type Severity Reaction Status Date / Time ketorolac [KETOROLAC] Allergy Severe Hallucinati Verified 09/02/21 15:09 ons phenytoin [PHENYTOIN] Allergy Severe Anaphylaxis Verified 09/02/21 15:09 codeine [CODEINE] Allergy Mild Nausea Verified 09/02/21 15:09 Penicillins [PENICILLINS] Allergy Unknown Patient Verified 09/02/21 15:09 can't remember Exam Vital signs: Vital Signs Temp Pulse Resp BP Pulse Ox 11/24/21 16:17 97.4 F L 63 18 111/69 97 Intake and Output 11/24/21 11/24/21 11/24/21 07:59 15:59 23:59 Other: Weight 111 kg Patient Weight 11/24/21 23:59 Weight 111 kg Results - Labs Laboratory Last Values WBC 4.6 X10^3/uL (4.5-11.0) 09/15/21 16:02 RBC 3.16 X10^6/uL (4.5-5.9) L 09/15/21 16:02 Hgb 5.3 g/dL (13.5-17.5) L* 09/23/21 10:55 Hct 19.1 % (41-53) L* 09/23/21 10:55 MCV 64.9 fL (80-100) L 09/15/21 16:02 MCH 17.6 PG (26-34) L 09/15/21 16:02 MCHC 27.0 % (30-36) L 09/15/21 16:02 RDW 22.7 % (11.6-14.8) H 09/15/21 16:02 Plt Count 310 X10^3/uL (150-400) 09/15/21 16:02 Neut % (Auto) 66.9 % (50-75) 09/15/21 16:02 Lymph % (Auto) 14.9 % (25-40) L 09/15/21 16:02 [place] % (Auto) 12.6 % (3-14) 09/15/21 16:02 Eos % (Auto) 4.2 % (2-4) H 09/15/21 16:02 Baso % (Auto) 1.4 % (0-2) 09/15/21 16:02 Neut # (Auto) 3100 /uL (5882-6745) 09/15/21 16:02 Lymph # (Auto) 700 /uL (4162-3967) L 09/15/21 16:02 [place] # (Auto) 600 /uL (0-900) 09/15/21 16:02 Eos # (Auto) 200 /uL (0-450) 09/15/21 16:02 Baso # (Auto) 100 /uL (0-100) 09/15/21 16:02 RBC Morphology See below 09/15/21 16:02 Hypochromasia 3+ H 09/15/21 16:02 Microcytosis 2+ H 09/15/21 16:02 Sodium 144 mmol/L (137-145) 09/15/21 16:02 Potassium 3.6 mmol/L (3.4-5.1) 09/15/21 16:02 Chloride 110 mmol/L (98-107) H 09/15/21 16:02 Carbon Dioxide 25 mmol/L (22-32) 09/15/21 16:02 BUN 7 mg/dL (9-20) L 09/15/21 16:02 Creatinine 0.61 mg/dL (0.66-1.25) L 09/15/21 16:02 Estimated GFR > 60 mL/min (>60) 09/15/21 16:02 BUN/Creatinine Ratio 11.5 (6-22) 09/15/21 16:02 Glucose 133 mg/dL (70-100) H 09/15/21 16:02 Calcium 8.9 mg/dL (8.4-10.2) 09/15/21 16:02 Iron 27 ug/dL (49-181) L 09/15/21 16:02 TIBC 470 ug/dL (261-462) H 09/15/21 16:02 % Saturation 6 % (20-50) L 09/15/21 16:02 Transferrin 353 mg/dL (206-381) 09/15/21 16:02 Ferritin 4 ng/mL (18-464) L 09/15/21 16:02 Total Bilirubin 0.3 mg/dL (0.2-1.3) 09/15/21 16:02 AST 25 IU/L (17-59) 09/15/21 16:02 ALT 14 IU/L (<50) 09/15/21 16:02 Alkaline Phosphatase 53 U/L (38-126) 09/15/21 16:02 Total Protein 6.8 g/dL (6.3-8.2) 09/15/21 16:02 Albumin 4.1 g/dL (3.5-5.0) 09/15/21 16:02 Globulin 2.7 g/dL (1.7-4.1) 09/15/21 16:02 Albumin/Globulin Ratio 1.5 (1.0-2.8) 09/15/21 16:02 Blood Type A Positive 09/23/21 10:55 Antibody Screen Negative 09/23/21 10:55 Crossmatch See Detail 09/23/21 10:55 - Imaging Additional studies: Procedures Excision of Esophagus, Via Natural or Artificial Opening Endoscopic, Diagnostic (09/11/15) Excision of Stomach, Via Natural or Artificial Opening Endoscopic, Diagnostic (09/11/15) Inspection of Lower Intestinal Tract, Via Natural or Artificial Opening Endoscopic (09/11/15) Transfusion of Nonautologous Frozen Plasma into Peripheral Vein, Percutaneous Approach (09/11/15) Transfusion of Nonautologous Red Blood Cells into Peripheral Vein, Percutaneous Approach (09/11/15) Assessment and Plan (1) Iron deficiency anemia due to chronic blood loss Status: Acute This is a very pleasant 56-year-old gentleman referred for evaluation of microcytic anemia with recent hematocrit of 20%. He does have a history of bright red blood per rectum and previous colonoscopies in 2016. He is on oral iron but however has not responded well to these. He did receive IV iron x 5 doses of venofer. Clinically he is doing better. He also had EGD and Colonoscopy which were negative for ulcers or malignancy. At this point we will monitor his blood counts in 3 months and give repeat iron infusion if needed.
[2021-11-24 16:24] LABS: Add Manual Diff / Slide Review NO; Basophils Absolute Auto 0 /uL (0-100); Basophils Percent Auto 0.3 % (0-2); Eosinophils Absolute Auto 1000 /uL (0-450); Eosinophils Percent Auto 18.5 % (2-4); Hematocrit 31.3 % (41-53); Hemoglobin 9.8 g/dL (13.5-17.5); Lymphocytes Absolute Auto 1000 /uL (1100-4500); Lymphocytes Percent Auto 18.2 % (25-40); Mean Corpuscular HGB Conc 31.3 % (30-36); Mean Corpuscular Volume 76.7 fL (80-100); Monocytes Absolute Auto 400 /uL (0-900); Monocytes Percent Auto 7.4 % (3-14); Neutrophils Absolute Auto 3000 /uL (1500-7000); Neutrophils Percent Auto 55.6 % (50-75); Platelet Count 230 X10^3/uL (150-400); Red Blood Cell Count 4.08 X10^6/uL (4.5-5.9); Red Cell Distribution Width 22.9 % (11.6-14.8); White Blood Cell Count 5.3 X10^3/uL (4.5-11.0)
--- NOTE | 2021-11-24 16:24 | ONC.SCHED ---
Follow up: Patient wants to call us to schedule 3 month fup with labs prior.
[2021-11-24 16:36] LABS: Anisocytosis 1+; Microcytosis 1+; Ovalocytes 1+; Poikilocytosis 2+
[2022-03-31 09:03] LABS: Add Manual Diff / Slide Review NO; Alanine Aminotransferase 15 IU/L (<50); Albumin Globulin Ratio 1.5 (1.0-2.8); Alkaline Phosphatase 56 U/L (38-126); Aspartate Aminotransferase 15 IU/L (17-59); BUN Creatinine Ratio 18.8 (6-22); Basophils Absolute Auto 100 /uL (0-100); Basophils Percent Auto 0.9 % (0-2); Blood Urea Nitrogen 13 mg/dL (9-20); Calcium 8.9 mg/dL (8.4-10.2); Carbon Dioxide 21 mmol/L (22-32); Chloride 113 mmol/L (98-107); Eosinophils Absolute Auto 500 /uL (0-450); Eosinophils Percent Auto 7.2 % (2-4); Estimated Glomerular Filt Rate > 60 mL/min (>60); Globulin 2.7 g/dL (1.7-4.1); Glucose 100 mg/dL (70-100); HEMOLYSIS < 15 (0-50); Hematocrit 28.9 % (41-53); Hemoglobin 8.7 g/dL (13.5-17.5); Lymphocytes Absolute Auto 1400 /uL (1100-4500); Lymphocytes Percent Auto 21.4 % (25-40); Mean Corpuscular HGB Conc 30.1 % (30-36); Mean Corpuscular Hemoglobin 22.4 PG (26-34); Mean Corpuscular Volume 74.3 fL (80-100); Monocytes Absolute Auto 500 /uL (0-900); Neutrophils Absolute Auto 4200 /uL (1500-7000); Neutrophils Percent Auto 63.5 % (50-75); Platelet Count 249 X10^3/uL (150-400); Potassium 3.6 mmol/L (3.4-5.1); Red Blood Cell Count 3.88 X10^6/uL (4.5-5.9); Red Cell Distribution Width 18.5 % (11.6-14.8); Sodium 142 mmol/L (137-145); Total Protein 6.7 g/dL (6.3-8.2); White Blood Cell Count 6.6 X10^3/uL (4.5-11.0)
[2022-03-31 09:06] LABS: Bilirubin Total < 0.1 mg/dL (0.2-1.3)
[2022-03-31 09:36] VITALS: BP 125/75; PULSE 58; RESP 16; TEMP 36.3; O2SAT 98
--- NOTE | 2022-03-31 09:50 | ONC.PN ---
PN -Subjective - Date of Visit Date of visit: 03/31/22 Chief Complaint: f/u iron def anemia Interval history: Lindsey is a 48-year-old gentleman with history of iron deficiency anemia. He did undergo EGD and colonoscopy with no obvious source of bleeding. He was treated with intravenous iron in October and November of 2021 with a good response. Today comes in with complaints of a kidney stone that is being addressed by Urology. Has also noticed some blood in his stools from hemorrhoids and is seeing surgery for this. He denies any shortness of breath fatigue fevers or chills. - Patient Self-Reported Symptoms SR Constitution: Fatigue/Malaise SR eye issues: Vision changes SR ears, nose, mouth, throat issues: Ears ringing, Cough SR respiratory issues: Cough, Shortness of breath, Difficulty breathing SR Cardiovascular issues: Chest pain, discomfort, tightness, Shortness of breath with activity or lying flat, Dizzy/lightheaded SR Skin issues: Dry skin, Skin rash or itching, Hair loss or scalp prob SR Gastrointestinal issues: Constipation, Blood in stool, Abdominal pain SR Genitourinary issues: Frequent urination SR Musculoskeletal issues: Back or neck pain, Difficulty walking SR Neuro issues: Headache, Lightheaded/dizzy, Tremors or shaking, Difficulty balancing Home Medications and Allergies Home Medications Medication Instructions Recorded Confirmed Type fluticasone propionate 50 1 spray intranasal DAILY ##16 10/20/16 03/31/22 Rx mcg/actuation nasal spray,suspension Lactulose See Rx Instructions .Route .COMPLEX 09/21/17 03/31/22 History albuterol sulfate 90 mcg/actuation 2 puff inhalation Q6H PRN 01/02/18 03/31/22 Rx aerosol inhaler shortness of breath or wheezing #18 grams acetaminophen 325 mg tablet (Pain See Rx Instructions .Route 07/02/19 03/31/22 Rx Reliever (acetaminophen)) .COMPLEX #60 tabs ascorbic acid (vitamin C) 1,000 mg 1 g PO DAILY #90 tabs 10/15/20 03/31/22 Rx tablet blood sugar test strips #100 ea 10/15/20 03/31/22 Rx primidone 50 mg tablet See Rx Instructions .Route 09/15/21 03/31/22 Rx .COMPLEX #270 tabs topiramate 100 mg tablet See Rx Instructions .Route 09/15/21 03/31/22 Rx .COMPLEX #90 tabs simvastatin 40 mg tablet See Rx Instructions .Route 10/13/21 03/31/22 Rx .COMPLEX #90 tabs pantoprazole 40 mg tablet,delayed 40 mg PO DAILY #90 tabs 01/27/22 03/31/22 Rx release dqvzcgbdpx-pfkhfkaxhkotc-chrxosew See Rx Instructions .Route 01/28/22 03/31/22 Rx 50 mg-325 mg-40 mg tablet .COMPLEX #60 tabs propranolol 40 mg tablet See Rx Instructions .Route 02/17/22 03/31/22 Rx .COMPLEX #90 tabs fluoxetine 20 mg capsule See Rx Instructions .Route 02/22/22 03/31/22 Rx .COMPLEX #90 caps metformin 500 mg tablet See Rx Instructions .Route 02/22/22 03/31/22 Rx .COMPLEX #180 tabs psyllium seed (sugar) oral powder 2 tsp PO ONCE #1,254 grams 02/23/22 03/31/22 Rx (Metamucil (sugar) oral powder) tamsulosin 0.4 mg capsule 0.4 mg PO DAILY #14 caps 02/23/22 03/31/22 Rx hydrocodone 5 mg-acetaminophen 325 1 tab PO Q4-6H PRN pain #180 tabs 03/11/22 03/31/22 Rx mg tablet Allergies Allergy/AdvReac Type Severity Reaction Status Date / Time ketorolac [KETOROLAC] Allergy Severe Hallucinati Verified 09/02/21 15:09 ons phenytoin [PHENYTOIN] Allergy Severe Anaphylaxis Verified 09/02/21 15:09 codeine [CODEINE] Allergy Mild Nausea Verified 09/02/21 15:09 Penicillins [PENICILLINS] Allergy Unknown Patient Verified 09/02/21 15:09 can't remember Exam Vital signs: Vital Signs Temp Pulse Resp BP Pulse Ox 03/31/22 09:36 97.4 F L 58 L 16 125/75 98 Intake and Output 03/30/22 03/31/22 03/31/22 23:59 07:59 15:59 Other: Weight 101.2 kg Patient Weight 03/31/22 23:59 Weight 101.2 kg Results - Labs Laboratory Last Values WBC 6.6 X10^3/uL (4.5-11.0) 03/31/22 08:41 RBC 3.88 X10^6/uL (4.5-5.9) L 03/31/22 08:41 Hgb 8.7 g/dL (13.5-17.5) L 03/31/22 08:41 Hct 28.9 % (41-53) L 03/31/22 08:41 MCV 74.3 fL (80-100) L 03/31/22 08:41 MCH 22.4 PG (26-34) L 03/31/22 08:41 MCHC 30.1 % (30-36) 03/31/22 08:41 RDW 18.5 % (11.6-14.8) H 03/31/22 08:41 Plt Count 249 X10^3/uL (150-400) 03/31/22 08:41 Neut % (Auto) 63.5 % (50-75) 03/31/22 08:41 Lymph % (Auto) 21.4 % (25-40) L 03/31/22 08:41 Floyd % (Auto) 7.0 % (3-14) 03/31/22 08:41 Eos % (Auto) 7.2 % (2-4) H 03/31/22 08:41 Baso % (Auto) 0.9 % (0-2) 03/31/22 08:41 Neut # (Auto) 4200 /uL (3224-4526) 03/31/22 08:41 Lymph # (Auto) 1400 /uL (6062-7807) 03/31/22 08:41 Floyd # (Auto) 500 /uL (0-900) 03/31/22 08:41 Eos # (Auto) 500 /uL (0-450) H 03/31/22 08:41 Baso # (Auto) 100 /uL (0-100) 03/31/22 08:41 RBC Morphology See below 11/24/21 16:03 Hypochromasia 3+ H 09/15/21 16:02 Poikilocytosis 2+ H 11/24/21 16:03 Anisocytosis 1+ H 11/24/21 16:03 Microcytosis 1+ H 11/24/21 16:03 Ovalocytes 1+ H 11/24/21 16:03 Sodium 142 mmol/L (137-145) 03/31/22 08:41 Potassium 3.6 mmol/L (3.4-5.1) 03/31/22 08:41 Chloride 113 mmol/L (98-107) H 03/31/22 08:41 Carbon Dioxide 21 mmol/L (22-32) L 03/31/22 08:41 BUN 13 mg/dL (9-20) 03/31/22 08:41 Creatinine 0.69 mg/dL (0.66-1.25) 03/31/22 08:41 Estimated GFR > 60 mL/min (>60) 03/31/22 08:41 BUN/Creatinine Ratio 18.8 (6-22) 03/31/22 08:41 Glucose 100 mg/dL (70-100) 03/31/22 08:41 Calcium 8.9 mg/dL (8.4-10.2) 03/31/22 08:41 Iron 27 ug/dL (49-181) L 09/15/21 16:02 TIBC 470 ug/dL (261-462) H 09/15/21 16:02 % Saturation 6 % (20-50) L 09/15/21 16:02 Transferrin 353 mg/dL (206-381) 09/15/21 16:02 Ferritin 4 ng/mL (18-464) L 09/15/21 16:02 Total Bilirubin < 0.1 mg/dL (0.2-1.3) L 03/31/22 08:41 AST 15 IU/L (17-59) L 03/31/22 08:41 ALT 15 IU/L (<50) 03/31/22 08:41 Alkaline Phosphatase 56 U/L (38-126) 03/31/22 08:41 Total Protein 6.7 g/dL (6.3-8.2) 03/31/22 08:41 Albumin 4.0 g/dL (3.5-5.0) 03/31/22 08:41 Globulin 2.7 g/dL (1.7-4.1) 03/31/22 08:41 Albumin/Globulin Ratio 1.5 (1.0-2.8) 03/31/22 08:41 Blood Type A Positive 09/23/21 10:55 Antibody Screen Negative 09/23/21 10:55 Crossmatch See Detail 09/23/21 10:55 - Imaging Additional studies: Procedures Excision of Esophagus, Via Natural or Artificial Opening Endoscopic, Diagnostic (09/11/15) Excision of Stomach, Via Natural or Artificial Opening Endoscopic, Diagnostic (09/11/15) Inspection of Lower Intestinal Tract, Via Natural or Artificial Opening Endoscopic (09/11/15) Transfusion of Nonautologous Frozen Plasma into Peripheral Vein, Percutaneous Approach (09/11/15) Transfusion of Nonautologous Red Blood Cells into Peripheral Vein, Percutaneous Approach (09/11/15) Assessment and Plan (1) Iron deficiency anemia due to chronic blood loss Status: Acute This is a very pleasant 56-year-old gentleman referred for evaluation of microcytic anemia with recent hematocrit of 20%. He does have a history of bright red blood per rectum and previous colonoscopies in 2016. He is on oral iron but however has not responded well to these. He did receive IV iron x 5 doses of venofer. Clinically he is doing better. His hematocrit is stable but he has increased hemorrhoid related rectal bleeding. He is seeing surgery for this. I will plan on repeating a CBC in 3 months for ongoing monitoring of his blood loss. I suspect this is likely due to his hemorrhoids with a slow chronic loss of blood. Consideration may be given to repeat iron infusions in 3 months if his hematocrit continues to decrease. .
[2022-06-24 10:37] LABS: Add Manual Diff / Slide Review NO; Basophils Absolute Auto 100 /uL (0-100); Basophils Percent Auto 1.9 % (0-2); Eosinophils Absolute Auto 300 /uL (0-450); Eosinophils Percent Auto 7.2 % (2-4); Hematocrit 27.1 % (41-53); Hemoglobin 8.4 g/dL (13.5-17.5); Lymphocytes Absolute Auto 900 /uL (1100-4500); Mean Corpuscular Hemoglobin 24.5 PG (26-34); Mean Corpuscular Volume 79.2 fL (80-100); Monocytes Absolute Auto 300 /uL (0-900); Monocytes Percent Auto 7.7 % (3-14); Neutrophils Absolute Auto 2800 /uL (1500-7000); Neutrophils Percent Auto 63.2 % (50-75); Platelet Count 268 X10^3/uL (150-400); Red Blood Cell Count 3.42 X10^6/uL (4.5-5.9); Red Cell Distribution Width 22.3 % (11.6-14.8); White Blood Cell Count 4.5 X10^3/uL (4.5-11.0)
[2022-06-24 10:49] LABS: Albumin 3.5 g/dL (3.5-5.0); Albumin Globulin Ratio 1.3 (1.0-2.8); Alkaline Phosphatase 46 U/L (38-126); Aspartate Aminotransferase 23 IU/L (17-59); BUN Creatinine Ratio 16.8 (6-22); Bilirubin Total 0.2 mg/dL (0.2-1.3); Blood Urea Nitrogen 17 mg/dL (9-20); Calcium 8.7 mg/dL (8.4-10.2); Carbon Dioxide 17 mmol/L (22-32); Chloride 113 mmol/L (98-107); Estimated Glomerular Filt Rate > 60 mL/min (>60); Globulin 2.8 g/dL (1.7-4.1); Glucose 132 mg/dL (70-100); Sodium 141 mmol/L (137-145); Total Protein 6.3 g/dL (6.3-8.2)
[2022-06-24 10:51] LABS: Alanine Aminotransferase 23 IU/L (<50); HEMOLYSIS < 15 (0-50); Potassium 4.1 mmol/L (3.4-5.1)
[2022-06-24 10:54] LABS: Anisocytosis 2+; Ovalocytes 1+
[2022-06-24 10:55] LABS: Hypochromasia 1+
[2022-06-24 11:59] LABS: HEMOLYSIS < 15 (0-50); Iron 20 ug/dL (49-181)
[2022-06-24 12:10] LABS: Percent Iron Saturation 5 % (20-50); Total Iron Binding Capacity 393 ug/dL (261-462); Transferrin 281 mg/dL (206-381)
[2022-06-24 12:20] LABS: Ferritin 15 ng/mL (18-464)
== END ==
PROVIDERS: PCP Family Medicine; Referring Provider Family Medicine; Visit Provider Internal Medicine Medical Oncology
DX: D50.0 Iron deficiency anemia secondary to blood loss (chronic) (principal); K62.5 Hemorrhage of anus and rectum
CPT/HCPCS: 36415; 36430; 80053; 82728; 83540; 83550; 85014; 85018; 85025; 86850; 86900; 86901; 96365; 96366; 96367; 99204; 99213; 99214; P9016; J1756

== ENCOUNTER 2022-08-11 08:45 | Day surgery (SDC) | payer OTHER, MEDICAID, SELFPAY ==
--- NOTE | 2022-08-11 | PATH_ITS ---
[facility] Accession Number: [id number] No. of containers..02 Tissue . 01 Material submitted: . PART A: gastrointestinal site - ANTRUM BIOPSY PART B: duodenum - DUODENAL BIOPSY . 01 Diagnosis: A. Stomach, Antrum, Biopsy: Antral mucosa with mild chronic gastritis. Negative for Helicobacter by immunohistochemistry. Negative for intestinal metaplasia. Negative for dysplasia and malignancy. . B. Duodenum, Biopsy: Duodenal mucosa with no diagnostic abnormality. Negative for active inflammation, features of sprue, dysplasia, or malignancy. [facility] 08/19/2022 1506 Local . 01 Electronically signed: . Aicha Shirley MD, Pathologist NPI- [id number] . 01 Gross description: . A. Received in formalin labeled with the patient's name, , and antrum biopsy, and consists of two woodard soft tissue fragments ranging from 0.3 to 0.4 cm in greatest dimension. Submitted entirely in cassette A1. B. Received in formalin labeled with the patient's name, , and duodenal biopsy, and consists of four woodard soft tissue fragments ranging from 0.3 to 0.4 cm in greatest dimension. Submitted entirely in cassette B1. ([id number]) /ISRA 08/18/2022 1043 Local . 01 Microscopic: . A. An immunohistochemical stain was performed to evaluate for Helicobacter organisms and is negative. The control stain showed appropriate reactivity. . * This test was developed and its performance characteristics determined by [facility]. It has not been cleared or approved by the U.S. Food and Drug Administration. The FDA has determined that such clearance or approval is not necessary. This test is used for clinical purposes. It should not be regarded as investigational or for research. . 01 Pathologist provided ICD-10: R10.9 . 01 CPT . 916475, 088166, U38759 Specimen Comment: A courtesy copy of this report has been sent to [phone] Performed at: 01 [facility] [address] [place] [address], [place], [place] [id number] MD Everette Card MD Phone: [phone]
[2022-08-11 09:17] VITALS: BMI 36.1
[2022-08-11] MEDS: LACTATED RINGERS 1,000 ML 42 ML IV (09:28)
[2022-08-11 09:30] VITALS: BP 140/82; PULSE 56; RESP 17; TEMP 35.9; O2SAT 98
--- NOTE | 2022-08-11 10:39 | PM.HP.1 ---
History of Present Illness History of Present Illness Date Patient Seen: 08/11/22 Time Patient Seen: 10:39 [place] [facility] [place]ative: Lindsey is here for his esophagogastroduodenoscopy. See prior office note for details. Has anemia of unclear etiology. He had a recent colonoscopy that was unrevealing. [facility] Medical History Anemia (~2013) BRBPR (bright red blood per rectum) Depression (Unknown) Developmental delay, mild (Unknown) Diabetes (Unknown) Excessive weight gain Flank pain GERD (gastroesophageal reflux disease) (Unknown) History of nephrolithiasis Hyperlipemia (Unknown) Hypertension (Unknown) Internal bleeding hemorrhoids Iron deficiency anemia due to chronic blood loss Migraines (Unknown) Nocturia Obstructive sleep apnea (Unknown) Peripheral neuropathy (Unknown) Rectal bleeding Right ureteral calculus Seizures (Unknown) Skin sensation disturbance Surgical History History of carpal tunnel release (~2003) History of esophagogastroduodenoscopy (EGD) (08/2015) Hx of colonoscopy (09/2015) Family History Brother DM2 (diabetes mellitus, type 2) Mother [place] (myocardial infarction) Social History household members: family Smoking Status: Never smoker second hand exposure: No alcohol intake: never substance use type: does not use Meds Home Medications and Allergies Home Medications Medication Instructions Recorded Confirmed Type fluoxetine 20 mg capsule 20 mg PO DAILY 08/11/22 08/11/22 History levetiracetam 500 mg tablet 1,500 mg PO TID 08/11/22 08/11/22 History metformin 500 mg tablet 500 mg PO DAILY 08/11/22 08/11/22 History primidone 50 mg tablet 50 mg PO DAILY 08/11/22 08/11/22 History propranolol 40 mg tablet 40 mg PO DAILY 08/11/22 08/11/22 History simvastatin 40 mg tablet 40 mg PO DAILY 08/11/22 08/11/22 History topiramate 100 mg tablet 100 mg PO DAILY 08/11/22 08/11/22 History Allergies Allergy/AdvReac Type Severity Reaction Status Date / Time ketorolac [KETOROLAC] Allergy Severe Hallucinati Verified 07/19/22 13:17 ons phenytoin [PHENYTOIN] Allergy Severe Anaphylaxis Verified 07/19/22 13:17 codeine [CODEINE] Allergy Mild Nausea Verified 07/19/22 13:17 Penicillins [PENICILLINS] Allergy Unknown Patient Verified 07/19/22 13:17 can't remember Exam Vital Signs (past 8 hours): - 08/11/22 09:30 Temperature 96.6 F L Pulse Rate 56 L Respiratory Rate 17 Blood Pressure 140/82 Pulse Oximetry 98 Oxygen Delivery Method Room Air Oxygen Delivery Method Room Air Narrative Exam Narrative: Pale No acute distress Assessment & Plan Assessment and plan (1) Iron deficiency anemia due to chronic blood loss: Status: Acute Plan We reviewed the risks and benefits of EGD for anemia and he would like to proceed.
[2022-08-11 11:03] VITALS: BP 127/76; PULSE 57; RESP 14; TEMP 35.7; O2SAT 94
--- NOTE | 2022-08-11 11:03 | PM.OP.EGD ---
Operative Date/Time/Diagnoses Date of procedure: 08/11/22 Time of procedure: 11:03 Pre-op diagnosis: Anemia Post-op diagnosis: same Procedure & Clinicians Study performed: Esophagogastroduodenoscopy Same procedure as scheduled: Yes Surgeon: David Edwards Procedure Notes Procedure in detail: Surgeon: David Edwards MD Anesthesia: David Hall CRNA A timeout was performed. A bite blocked was placed. The patient was positioned in the left lateral decubitus position. Anesthesia was administered. The endoscope was inserted through the bite block and passed through the esophagus and stomach and into the duodenum. The duodenal mucosa appeared slightly denuded and random biopsies were taken from the. The scope was withdrawn into the duodenal bulb and no other abnormalities were seen. The scope was withdrawn into the stomach. Was antritis and a medium-sized ulcer at pylorus. There was no evidence of active or recent bleeding. Random biopsies were taken from the antrum. The rest of the stomach was normal. The scope was retroflexed and no other abnormalities were seen. The scope was withdrawn into the esophagus and no other abnormalities were seen. The remainder of the esophagus was normal. The scope was withdrawn. The patient was awakened and brought to recovery. Sedation time: 7 minutes Findings: Antritis and a pyloric ulcer Post-procedure Disposition: PACU
[2022-08-11 11:09] VITALS: BP 120/78; PULSE 53; RESP 15; O2SAT 95
[2022-08-11 11:14] VITALS: BP 131/79; PULSE 58; RESP 21; O2SAT 96
[2022-08-11 11:16] VITALS: BP 131/79; PULSE 56; RESP 18; O2SAT 97
[2022-08-11 11:25] VITALS: BP 122/74; PULSE 50; RESP 14; TEMP 36.2; O2SAT 98
== END 2022-08-11 11:35 | disposition home or self-care (01) ==
PROVIDERS: PCP Family Medicine; Referring Provider Surgery; Visit Provider Surgery
PROC: 0DJ08ZZ Inspection of Upper Intestinal Tract, Via Natural or Artificial Opening Endoscopic (ICD-10-PCS; CPT 43235; principal; 2022-08-11 10:15)
DX: D64.9 Anemia, unspecified (principal); K29.50 Unspecified chronic gastritis without bleeding
CPT/HCPCS: 43239

== ENCOUNTER → 2023-03-24 11:38 | Outpatient (CLI) | payer OTHER, MEDICAID, SELFPAY ==
[2023-03-24 12:02] LABS: Add Manual Diff / Slide Review NO; Basophils Absolute Auto 100 /uL (0-100); Basophils Percent Auto 1.4 % (0-2); Eosinophils Absolute Auto 500 /uL (0-450); Eosinophils Percent Auto 13.3 % (2-4); Hematocrit 36.7 % (41-53); Lymphocytes Absolute Auto 600 /uL (1100-4500); Lymphocytes Percent Auto 17.3 % (25-40); Mean Corpuscular HGB Conc 32.8 % (30-36); Mean Corpuscular Hemoglobin 30.1 PG (26-34); Mean Corpuscular Volume 91.8 fL (80-100); Monocytes Absolute Auto 400 /uL (0-900); Monocytes Percent Auto 11.6 % (3-14); Neutrophils Absolute Auto 2100 /uL (1500-7000); Neutrophils Percent Auto 56.4 % (50-75); Platelet Count 131 X10^3/uL (150-400); Red Blood Cell Count 3.99 X10^6/uL (4.5-5.9); Red Cell Distribution Width 18.9 % (11.6-14.8); White Blood Cell Count 3.7 X10^3/uL (4.5-11.0)
[2023-03-24 12:18] LABS: Hemoglobin A1C% w Est Avg Glu 5.3 % (4.0-6.0)
[2023-03-24 12:21] LABS: Alanine Aminotransferase 24 IU/L (<50); Albumin 3.8 g/dL (3.5-5.0); Albumin Globulin Ratio 1.3 (1.0-2.8); Alkaline Phosphatase 51 U/L (38-126); Aspartate Aminotransferase 33 IU/L (17-59); BUN Creatinine Ratio 34.7 (6-22); Bilirubin Total 0.3 mg/dL (0.2-1.3); Blood Urea Nitrogen 25 mg/dL (9-20); Calcium 8.7 mg/dL (8.4-10.2); Carbon Dioxide 28 mmol/L (22-32); Chloride 103 mmol/L (98-107); Cholesterol 155 mg/dL (140-199); Estimated Glomerular Filt Rate > 60 mL/min (>60); Glucose 99 mg/dL (70-100); HDL Cholesterol 43 mg/dL (40-60); HEMOLYSIS < 15 (0-50); LDL Cholesterol Calculated 95 mg/dL (<100); Potassium 4.1 mmol/L (3.4-5.1); Sodium 140 mmol/L (137-145); Total Protein 6.8 g/dL (6.3-8.2); Triglycerides 87 mg/dL (35-150)
[2023-03-24 12:52] LABS: TSH w/ Reflex to FT4 0.73 uIU/mL (0.47-4.68)
== END ==
PROVIDERS: PCP Family Medicine; Referring Provider Family Medicine; Visit Provider Family Medicine
DX: D64.9 Anemia, unspecified (principal); E78.5 Hyperlipidemia, unspecified; K21.9 Gastro-esophageal reflux disease without esophagitis; E11.9 Type 2 diabetes mellitus without complications; I50.9 Heart failure, unspecified; E66.9 Obesity, unspecified
CPT/HCPCS: 36415; 80053; 80061; 83036; 84443; 85025

== ENCOUNTER → 2023-07-06 15:04 | Outpatient (CLI) | payer OTHER, MEDICAID, SELFPAY ==
--- NOTE | 2023-07-06 15:05 | DI.RAD.S_ITS ---
PROCEDURE: XR ELBOW RT MIN 3V INDICATIONS: Tenderness medial elbow, bruising medial arm TECHNIQUE: 3 views of the elbow were acquired. COMPARISON: None. FINDINGS: Bones: No fractures or dislocations. No suspicious bony lesions. Soft tissues: No elbow joint effusion. No suspicious soft tissue calcifications. Mild soft tissue swelling over the olecranon process IMPRESSION: Mild olecranon soft tissue swelling, possible olecranon bursitis Approved by: Segundo Linda M.D. on 07/06/2023 at 19:33
== END ==
PROVIDERS: PCP Family Medicine; Referring Provider Nurse Practitioner Family; Visit Provider Nurse Practitioner Family
DX: M25.521 Pain in right elbow (principal); M79.89 Other specified soft tissue disorders
CPT/HCPCS: 73080

== ENCOUNTER → 2023-09-15 15:33 | Outpatient (CLI) | payer OTHER, MEDICAID, SELFPAY ==
[2023-09-15 16:29] LABS: HEMOLYSIS < 15 (0-50); Hemoglobin A1C% w Est Avg Glu 5.2 % (4.0-6.0); Iron 75 ug/dL (49-181)
[2023-09-15 16:40] LABS: Percent Iron Saturation 25 % (20-50); Total Iron Binding Capacity 299 ug/dL (261-462); Transferrin 225 mg/dL (206-381)
[2023-09-15 16:42] LABS: Add Manual Diff / Slide Review NO; Basophils Absolute Auto 100 /uL (0-100); Eosinophils Absolute Auto 300 /uL (0-450); Eosinophils Percent Auto 6.6 % (2-4); Hematocrit 41.3 % (41-53); Hemoglobin 13.9 g/dL (13.5-17.5); Lymphocytes Absolute Auto 900 /uL (1100-4500); Lymphocytes Percent Auto 17.2 % (25-40); Mean Corpuscular HGB Conc 33.6 % (30-36); Mean Corpuscular Hemoglobin 33.8 PG (26-34); Mean Corpuscular Volume 100.5 fL (80-100); Monocytes Absolute Auto 400 /uL (0-900); Monocytes Percent Auto 7.7 % (3-14); Neutrophils Absolute Auto 3400 /uL (1500-7000); Neutrophils Percent Auto 67.5 % (50-75); Platelet Count 154 X10^3/uL (150-400); Red Blood Cell Count 4.11 X10^6/uL (4.5-5.9); Red Cell Distribution Width 13.1 % (11.6-14.8)
== END ==
PROVIDERS: PCP Family Medicine; Referring Provider Family Medicine; Visit Provider Family Medicine
DX: E11.9 Type 2 diabetes mellitus without complications (principal); D64.9 Anemia, unspecified; D50.0 Iron deficiency anemia secondary to blood loss (chronic); E78.5 Hyperlipidemia, unspecified; I10 Essential (primary) hypertension
CPT/HCPCS: 36415; 83036; 83540; 83550; 85025

== ENCOUNTER → 2024-03-26 12:36 | Outpatient (CLI) | payer OTHER, SELFPAY ==
--- NOTE | 2024-03-26 12:38 | DI.US.S_ITS ---
PROCEDURE: US ABDOMEN LIMITED INDICATIONS: POSITIVE MARION'S SIGN TECHNIQUE: Real-time focused scanning was performed of the abdomen, with image documentation. COMPARISON: None. FINDINGS: Liver measures 14.0 cm with an overall coarsened appearance. Mild prominence of the main portal vein measuring 17.2 mm. Gallbladder is unremarkable. Common bile duct measures 4 mm. Spleen is at the upper limits measuring 14.2 cm. IMPRESSION: Gallbladder is unremarkable. Coarsened appearance of the liver suggestive of potential developing cirrhosis although nonspecific. Dictated by: Neyda Vanegas M.D. on 03/26/2024 at 15:33 Approved by: Neyda Vanegas M.D. on 03/26/2024 at 15:34
== END ==
PROVIDERS: PCP Family Medicine; Referring Provider Family Medicine; Visit Provider Family Medicine
DX: R10.11 Right upper quadrant pain (principal)
CPT/HCPCS: 76705

== ENCOUNTER → 2024-05-03 10:42 | Outpatient (CLI) | payer OTHER, SELFPAY ==
[2024-05-03 11:14] LABS: Add Manual Diff / Slide Review NO; Basophils Absolute Auto 0 /uL (0-100); Eosinophils Absolute Auto 400 /uL (0-450); Hematocrit 39.5 % (41-53); Hemoglobin 13.6 g/dL (13.5-17.5); Lymphocytes Absolute Auto 1100 /uL (1100-4500); Lymphocytes Percent Auto 25.4 % (25-40); Mean Corpuscular HGB Conc 34.5 % (30-36); Mean Corpuscular Hemoglobin 33.4 PG (26-34); Mean Corpuscular Volume 96.8 fL (80-100); Monocytes Absolute Auto 300 /uL (0-900); Monocytes Percent Auto 6.3 % (3-14); Neutrophils Absolute Auto 2500 /uL (1500-7000); Neutrophils Percent Auto 57.3 % (50-75); Platelet Count 173 X10^3/uL (150-400); Red Blood Cell Count 4.09 X10^6/uL (4.5-5.9); Red Cell Distribution Width 13.7 % (11.6-14.8); White Blood Cell Count 4.3 X10^3/uL (4.5-11.0)
[2024-05-03 11:24] LABS: Hemoglobin A1C% w Est Avg Glu 4.9 % (4.0-6.0)
[2024-05-03 11:33] LABS: Alanine Aminotransferase 19 IU/L (<50); Albumin 4.4 g/dL (3.5-5.0); Albumin Globulin Ratio 1.8 (1.0-2.8); Alkaline Phosphatase 62 U/L (38-126); Aspartate Aminotransferase 19 IU/L (17-59); BUN Creatinine Ratio 26.8 (6-22); Bilirubin Total 0.7 mg/dL (0.2-1.3); Blood Urea Nitrogen 19 mg/dL (9-20); Calcium 9.7 mg/dL (8.4-10.2); Carbon Dioxide 22 mmol/L (22-32); Chloride 109 mmol/L (98-107); Estimated Glomerular Filt Rate > 60 mL/min (>60); Globulin 2.5 g/dL (1.7-4.1); Glucose 106 mg/dL (80-110); HEMOLYSIS < 15 (0-50); Lipase 159 U/L (23-300); Potassium 3.5 mmol/L (3.4-5.1); Sodium 140 mmol/L (137-145); Total Protein 6.9 g/dL (6.3-8.2)
[2024-05-03 12:03] LABS: Prostate Specific Antigen Scrn 0.428 ng/mL (0.1-4.0)
[2024-05-03 14:55] LABS: Hepatitis B Surface Antigen NEGATIVE s/c (NEGATIVE)
[2024-05-04 04:11] LABS: Ceruloplasmin 17.2 mg/dL (16.0-31.0)
[2024-05-04 23:09] LABS: Anti Mitochondrial ABY IGG <20.0 Units (0.0-20.0)
[2024-05-07 11:10] LABS: ANA Screen, IFA Negative (.)
== END ==
PROVIDERS: PCP Family Medicine; Referring Provider Internal Medicine Gastroenterology; Visit Provider Internal Medicine Gastroenterology
DX: D75.89 Other specified diseases of blood and blood-forming organs (principal); E11.9 Type 2 diabetes mellitus without complications; E78.5 Hyperlipidemia, unspecified; I10 Essential (primary) hypertension; G40.909 Epilepsy, unspecified, not intractable, without status epilepticus; Z12.5 Encounter for screening for malignant neoplasm of prostate; R10.11 Right upper quadrant pain; K74.60 Unspecified cirrhosis of liver
CPT/HCPCS: 36415; 80053; 82390; 83036; 83516; 83690; 85025; 86038; 87340; 87522; G0103

== ENCOUNTER → 2024-05-22 13:52 | Outpatient (CLI) | payer OTHER, SELFPAY ==
[2024-05-22 14:43] LABS: Add Manual Diff / Slide Review NO; Basophils Absolute Auto 100 /uL (0-100); Basophils Percent Auto 1.4 % (0-2); Eosinophils Absolute Auto 100 /uL (0-450); Eosinophils Percent Auto 2.1 % (2-4); Hemoglobin 9.3 g/dL (13.5-17.5); Lymphocytes Absolute Auto 800 /uL (1100-4500); Lymphocytes Percent Auto 16.4 % (25-40); Mean Corpuscular Volume 93.6 fL (80-100); Monocytes Absolute Auto 400 /uL (0-900); Monocytes Percent Auto 8.7 % (3-14); Neutrophils Absolute Auto 3300 /uL (1500-7000); Neutrophils Percent Auto 71.4 % (50-75); Platelet Count 231 X10^3/uL (150-400); Red Cell Distribution Width 16.8 % (11.6-14.8); White Blood Cell Count 4.6 X10^3/uL (4.5-11.0)
== END ==
PROVIDERS: PCP Family Medicine; Referring Provider Family Medicine; Visit Provider Family Medicine
DX: D62 Acute posthemorrhagic anemia (principal); K92.2 Gastrointestinal hemorrhage, unspecified
CPT/HCPCS: 36415; 85025

== ENCOUNTER 2024-11-19 11:41 | Day surgery (SDC) | payer OTHER, SELFPAY ==
--- NOTE | 2024-11-19 | PATH_ITS ---
[facility] Accession Number: [id number] No. of containers..02 Tissue . 01 Material submitted: . PART A: gastrointestinal site - GASTRIC, RANDOM PART B: esophagus - ESOPHAGUS BIOPSY . 01 Clinical history: . A: R/O HP . 01 Diagnosis: A. STOMACH, BIOPSY: Gastric antral and body mucosa with mild chronic inflammation. Negative for Helicobacter organisms by immunohistochemistry. Negative for intestinal metaplasia. Negative for dysplasia or malignancy. . B. ESOPHAGUS, BIOPSY: Squamous mucosa with increased intraepithelial eosinophils (greater than 50 eosinophils per high-power field). Please see comment. Negative for dysplasia and malignancy. MRV 11/28/2024 1622 Local . 01 Comment: B. In the proper clinical setting, the histopathologic appearance would support a clinical impression of eosinophilic esophagitis. The differential diagnosis includes drug reaction, gastroesophageal reflux, and food allergies. . . 01 Electronically signed: . Jesus Solorio MD, PhD, Pathologist NPI- [id number] . 01 Gross description: . Received are two formalin-filled containers both labeled with the patient's name. . A. In a container labeled random gastric, are two fragments of woodard, soft tissue which range in size from 0.2 x 0.2 x 0.2 cm to 0.3 x 0.3 x 0.2 cm. All fragments are totally submitted in cassette A1. B. In a container labeled 2. Esophagus, are three fragments of woodard, soft tissue which range in size from less than 0.1 cm to 0.3 x 0.3 x 0.1 cm. All fragments are totally submitted in cassette B1. ([id number]) /ISRA 11/23/2024 0830 Local . 01 Microscopic: . A. An immunohistochemical stain was performed to evaluate for Helicobacter organisms and is negative. The control stain showed appropriate reactivity. . B. A PAS stain is negative for fungal organisms. A control stain shows appropriate reactivity. . * This test was developed and the performance characteristics were validated by [facility]. It has not been cleared or approved by the U.S. Food and Drug Administration. . 01 Pathologist provided ICD-10: K29.70, K20.0 . 01 CPT . 520333, 242727, N65836, 825517 Specimen Comment: A courtesy copy of this report has been sent to [phone] Performed at: 01 [address] [place] [address], [place], [place] [id number] MD Everette Card MD Phone: [phone]
[2024-11-19 12:21] VITALS: BP 164/103; PULSE 105; RESP 16; TEMP 36.1; O2SAT 95
[2024-11-19] MEDS: LACTATED RINGERS 1,000 ML 120 ML IV (12:26)
--- NOTE | 2024-11-19 12:26 | PM.HP.IH.1 ---
History of Present Illness History of Present Illness Date Patient Seen: 11/19/24 Chief complaint: SDC Narrative: Blood loss anemia, history of cirrhosis, and abdominal pain probably from costochondritis rule out unhealed duodenal ulcer [facility] Medical History (Updated 10/04/24 @ 15:44 by En Hui MD) Upper GI bleed Acute blood loss anemia Nausea RUQ abdominal pain Macrocytosis without anemia Chronic pain of right knee Frontal headache History of nephrolithiasis Flank pain Right ureteral calculus Internal bleeding hemorrhoids Skin sensation disturbance Iron deficiency anemia due to chronic blood loss BRBPR (bright red blood per rectum) Excessive weight gain Nocturia GERD (gastroesophageal reflux disease) (Unknown) Anemia (~2013) Depression (Unknown) Obstructive sleep apnea (Unknown) Developmental delay, mild (Unknown) Seizures (Unknown) Migraines (Unknown) Peripheral neuropathy (Unknown) Hyperlipemia (Unknown) Hypertension (Unknown) Diabetes (Unknown) Rectal bleeding Surgical History History of carpal tunnel release (~2003) Hx of colonoscopy (09/2015) History of esophagogastroduodenoscopy (EGD) (08/2015) Family History Brother DM2 (diabetes mellitus, type 2) Mother ND (myocardial infarction) Social History household members: family Smoking Status: Never smoker second hand exposure: No alcohol intake: never substance use type: does not use Meds Home Medications and Allergies Home Medications ?Medication ?Instructions ?Recorded ?Confirmed ?Type aspirin 325 mg tablet 325 mg PO DAILY 07/01/23 11/19/24 History Held on 11/19/24. Instructions: Provider's Order blood-glucose meter #1 ea 09/09/23 10/04/24 Rx lancets 33 gauge #100 ea 09/09/23 10/04/24 Rx metformin 500 mg tablet 500 mg PO DAILY #30 tabs 05/18/24 10/04/24 Rx blood sugar diagnostic (Blood #50 ea 06/15/24 10/04/24 Rx Glucose Test strips) blood sugar diagnostic (Accu-Chek #100 ea 06/19/24 10/04/24 Rx Guide test strips) pantoprazole 40 mg tablet,delayed 40 mg PO DAILY #90 tabs 08/07/24 11/19/24 Rx release cyclobenzaprine 10 mg tablet 10 mg PO TID PRN muscle spasm #30 09/11/24 10/04/24 Rx tabs levetiracetam 500 mg tablet 1,500 mg (3 x 500 mg) PO TID #270 11/01/24 11/19/24 Rx tabs fluoxetine 20 mg capsule 20 mg PO DAILY #90 caps 11/08/24 11/19/24 Rx revrbpvqly-cpqelpt-plpzygvz 50 1 cap PO Q6H PRN pain #60 caps 11/12/24 Rx mg-325 mg-40 mg capsule propranolol 20 mg tablet 20 mg PO TID 11/19/24 11/19/24 History Allergies Allergy/AdvReac Type Severity Reaction Status Date / Time ketorolac (KETOROLAC) Allergy Severe Hallucinati Verified 10/04/24 13:58 ons phenytoin (PHENYTOIN) Allergy Severe Anaphylaxis Verified 10/04/24 13:58 codeine (CODEINE) Allergy Mild Nausea Verified 10/04/24 13:58 Penicillins (PENICILLINS) Allergy Unknown Patient Verified 10/04/24 13:58 can't remember sumatriptan AdvReac Intermediate Chest Pain Verified 10/04/24 13:58 Exam Vital Signs (past 8 hours): - 11/19/24 12:21 Temperature 97 F L Pulse Rate 105 H Respiratory Rate 16 Blood Pressure 164/103 H Pulse Oximetry 95 Oxygen Delivery Method Room Air Oxygen Delivery Method Room Air Narrative Exam Narrative: Oropharynx free of lesions Chest clear to auscultation percussion Cardiac exam reveals no S3 or murmur Objective Labs Labs: Laboratory Results - last 24 hr 11/19/24 12:16 POC Whole Bld Glucose 105 H Assessment & Plan Time-Based Coding :: [TOTAL MINUTES] spent with patient and on the chart (including review of chart, obtaining history, exam, reviewing outside data, placing orders, documenting exam and treatment plan, and counseling patient) on [DATE]. 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
--- NOTE | 2024-11-19 12:27 | PM.OP.EGD ---
Operative Date/Time/Diagnoses Date of procedure: 11/19/24 Time of procedure: 13:39 Pre-op diagnosis: See indication and findings Post-op diagnosis: same Procedure & Clinicians Study performed: EGD Same procedure(s) as scheduled: Yes Indications: History of upper GI bleed with history of duodenal ulcer. Also history of cirrhosis and history of abdominal pain. Rule out non healed duodenal ulcer Anesthesia Type: Other Procedure Notes Procedure in detail: After informed consent was obtained the patient was placed in left lateral decubitus position. The video upper scope was placed into the oropharynx and with the patient's help swallowed into the esophagus. The esophagus stomach and duodenal were carefully examined. On withdrawal retroflexed view the GE junction was performed. The scope was removed. The patient tolerated procedure well. Blood loss none Complications none Sedation mac Findings 1. Esophagus with superficial exudate that easily moved in irregular patches. Biopsies taken but probably not Moni 2. Normal stomach without evidence of varices. Biopsies taken to rule out Helicobacter 3. Normal duodenal bulb and sweep with the exception of pyloric erosions. We will follow up on the biopsies to see whether none needs to be treated for Moni. More importantly he will need to stay on proton pump inhibitors and have a repeat upper endoscopy within another 12 weeks
[2024-11-19 13:22] VITALS: BP 138/91; PULSE 89; RESP 19; TEMP 36.5; O2SAT 95
[2024-11-19 13:25] VITALS: BP 140/92; PULSE 100; RESP 17; O2SAT 97
[2024-11-19 13:30] VITALS: BP 150/90; PULSE 97; RESP 19; O2SAT 95
[2024-11-19 13:35] VITALS: BP 152/94; PULSE 89; RESP 24; TEMP 36.7; O2SAT 95
[2024-11-19 13:54] VITALS: BP 133/80; PULSE 82; TEMP 36.7; O2SAT 97
== END 2024-11-19 14:15 | disposition home or self-care (01) ==
PROVIDERS: PCP Family Medicine; Referring Provider Internal Medicine Gastroenterology; Visit Provider Internal Medicine Gastroenterology
PROC: 0DJ08ZZ Inspection of Upper Intestinal Tract, Via Natural or Artificial Opening Endoscopic (ICD-10-PCS; CPT 43239; principal; 2024-11-19 13:00)
DX: K29.50 Unspecified chronic gastritis without bleeding (principal); Z87.19 Personal history of other diseases of the digestive system
CPT/HCPCS: 43239; 82962; J2704; J3010; J7120

== ENCOUNTER → 2024-12-26 12:08 | Outpatient (CLI) | payer OTHER, SELFPAY ==
[2024-12-27 13:10] LABS: Interpretation Negative (Negative)
== END ==
PROVIDERS: PCP Family Medicine; Referring Provider Family Medicine; Visit Provider Family Medicine
DX: R10.13 Epigastric pain (principal)
CPT/HCPCS: 83013

== ENCOUNTER 2025-01-16 10:00 | Day surgery (SDC) | payer OTHER, SELFPAY ==
[2025-01-07 09:49] VITALS: BMI 39.9
[2025-01-16 10:14] VITALS: BP 151/95; PULSE 106; RESP 22; TEMP 35.8; O2SAT 97
[2025-01-16] MEDS: LACTATED RINGERS 1,000 ML 42 ML IV (10:22)
--- NOTE | 2025-01-16 10:36 | PM.HP.IH.1 ---
History of Present Illness History of Present Illness Date Patient Seen: 01/16/25 Chief complaint: SDC Narrative: Patient is a 59-year-old man with known history of cirrhosis and portal hypertension. I have previously done an upper endoscopy on him showing some mild gastropathy of portal hypertension and other mild findings. Still, records show that he came into the emergency room at [facility] because of epigastric abdominal pain. His 1st comment was that he came in because of a GI bleed but ?this is something I hurt? and he did not actually see except for the performance of a fecal occult blood slide. He has been on lansoprazole and well insurance companies were about to take him off of it he has been given the prescription again and has been on it. CT scan shows perisplenic varices cirrhosis. [facility] Medical History (Updated 12/26/24 @ 12:01 by Keith Oliva DO) Epigastric abdominal pain Upper GI bleed Acute blood loss anemia Nausea RUQ abdominal pain Macrocytosis without anemia Chronic pain of right knee Frontal headache History of nephrolithiasis Flank pain Right ureteral calculus Internal bleeding hemorrhoids Skin sensation disturbance Iron deficiency anemia due to chronic blood loss BRBPR (bright red blood per rectum) Excessive weight gain Nocturia GERD (gastroesophageal reflux disease) (Unknown) Anemia (~2013) Depression (Unknown) Obstructive sleep apnea (Unknown) Developmental delay, mild (Unknown) Seizures (Unknown) Migraines (Unknown) Peripheral neuropathy (Unknown) Hyperlipemia (Unknown) Hypertension (Unknown) Diabetes (Unknown) Rectal bleeding Surgical History History of carpal tunnel release (~2003) Hx of colonoscopy (09/2015) History of esophagogastroduodenoscopy (EGD) (08/2015) Family History Brother DM2 (diabetes mellitus, type 2) Mother [place] (myocardial infarction) Social History household members: family Smoking Status: Never smoker second hand exposure: No alcohol intake: never substance use type: does not use Meds Home Medications and Allergies Home Medications ?Medication ?Instructions ?Recorded ?Confirmed ?Type aspirin 325 mg tablet 325 mg PO DAILY 07/01/23 01/16/25 History blood-glucose meter #1 ea 09/09/23 12/26/24 Rx lancets 33 gauge #100 ea 09/09/23 12/26/24 Rx blood sugar diagnostic (Blood #50 ea 06/15/24 12/26/24 Rx Glucose Test strips) blood sugar diagnostic (Accu-Chek #100 ea 06/19/24 12/26/24 Rx Guide test strips) cyclobenzaprine 10 mg tablet 10 mg PO TID PRN muscle spasm #30 09/11/24 01/16/25 Rx tabs fluoxetine 20 mg capsule 20 mg PO DAILY #90 caps 11/08/24 01/16/25 Rx metformin 500 mg tablet 500 mg PO DAILY #30 tabs 11/21/24 01/16/25 Rx levetiracetam 500 mg tablet 1,500 mg (3 x 500 mg) PO 3XD #810 12/07/24 01/16/25 Rx tabs omeprazole 40 mg capsule,delayed 40 mg PO BID #60 caps 12/26/24 01/16/25 Rx release Allergies Allergy/AdvReac Type Severity Reaction Status Date / Time ketorolac (KETOROLAC) Allergy Severe Hallucinati Verified 01/16/25 10:12 ons phenytoin (PHENYTOIN) Allergy Severe Anaphylaxis Verified 01/16/25 10:12 codeine (CODEINE) Allergy Mild Nausea Verified 01/16/25 10:12 Penicillins (PENICILLINS) Allergy Unknown Patient Verified 01/16/25 10:12 can't remember sumatriptan AdvReac Intermediate Chest Pain Verified 01/16/25 10:12 Exam Vital Signs (past 8 hours): - 01/16/25 10:14 Temperature 96.5 F L Pulse Rate 106 H Respiratory Rate 22 Blood Pressure 151/95 H Pulse Oximetry 97 Oxygen Delivery Method Room Air Oxygen Delivery Method Room Air Narrative Exam Narrative: Oropharynx free of lesions Chest clear to auscultation percussion Cardiac exam reveals no S3 or murmur Objective Labs Labs: Laboratory Results - last 24 hr 01/16/25 10:16 POC Whole Bld Glucose 144 H Assessment & Plan Assessment and plan (1) Epigastric abdominal pain: Status: Acute (2) Upper GI bleed: Status: Acute Plan Patient is a 59-year-old man with a history of cirrhosis and portal hypertension who presents with his own personal history of ?GI bleeding? but in fact he presented primarily with epigastric pain and only had signs of bleeding on a fecal occult blood slide. This occurred while on lansoprazole which he remains on. Differential could include gastropathy of portal hypertension causing bleeding and for more serious bleeding could be something more occult such as a Dieulafoy's ulcer. Regardless, feel it he deserves an upper endoscopy to rule out any recurrent peptic disease or bleeding lesions. I think these are quite unlikely however. Regardless have the endoscopy I would have him stay on his lansoprazole probably for life. Risks, benefits, alternatives have been explained. Assessment & Plan narrative: Upper abdominal discomfort Time-Based Coding :: [TOTAL MINUTES] spent with patient and on the chart (including review of chart, obtaining history, exam, reviewing outside data, placing orders, documenting exam and treatment plan, and counseling patient) on [DATE]. 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
--- NOTE | 2025-01-16 10:53 | PM.OP.ENDO ---
Operative Date/Time/Diagnoses Date of procedure: 01/16/25 Time of procedure: 00:00 Pre-op diagnosis: Indication is epigastric pain but also the patient complained of epigastric pain Post-op diagnosis: same (Pyloric channel) Procedure & Clinicians Study performed: EGD with biopsy Same procedure(s) as scheduled: Yes Indications: Epigastric pain and possible GI bleed. Surgeon: En Hui Anesthesia Type: MAC +/- Procedure Notes Procedure in detail: After informed consent was obtained the patient was placed in left lateral decubitus position. The video upper scope was placed into the oropharynx and with the help of the patient's swallowed into the esophagus. The esophagus stomach and duodenal were carefully examined. On withdrawal, retroflexed view of the GE junction was performed. The scope was removed. The patient tolerated procedure well. Blood loss none Complications none Sedation mac Findings 1. Normal esophagus with no evidence of varices or peptic disease 2. Normal proximal stomach without any evidence of gastropathy or portal hypertension. Neither was there evidence of a Dieulafoy's ulcer 3. Distal stomach with some radiating erythematous folds. This culminated in a 6 mm superficial ulcer partly healed in the pyloric channel. 4. Normal duodenal bulb and sweep Mr. Arrieta certainly needs to stay on his lansoprazole. He also needs to be encouraged to stay away from any nonsteroidal anti-inflammatory or aspirin. I would suggest follow-up endoscopy in 8 weeks. Estimated Blood Loss: 0 Complications: none
[2025-01-16 10:55] VITALS: BP 120/70; PULSE 97; RESP 28; TEMP 36.7; O2SAT 98
[2025-01-16 11:00] VITALS: BP 123/63; PULSE 96; RESP 30; O2SAT 97
[2025-01-16 11:10] VITALS: BP 119/67; PULSE 88; RESP 19; O2SAT 98
== END 2025-01-16 11:48 | disposition home or self-care (01) ==
PROVIDERS: PCP Family Medicine; Referring Provider Internal Medicine Gastroenterology; Visit Provider Internal Medicine Gastroenterology
PROC: 0DJ08ZZ Inspection of Upper Intestinal Tract, Via Natural or Artificial Opening Endoscopic (ICD-10-PCS; CPT 43235; principal; 2025-01-16 10:45)
DX: R10.13 Epigastric pain (principal); K74.60 Unspecified cirrhosis of liver; K76.6 Portal hypertension; R19.5 Other fecal abnormalities
CPT/HCPCS: 43235; 82962; J2704; J7120